=== PATIENT | female | born 1955 | race Caucasian/White ===

== ENCOUNTER → 2016-06-06 | Outpatient (CLI) | payer BC ==
--- NOTE | 2016-06-10 07:57 | MM ---
Reason for exam: screening (asymptomatic). Last mammogram was performed 1 year and 8 months ago. Physical Findings: A clinical breast exam by your physician is recommended on an annual basis and results should be correlated with mammographic findings. MG Screening Mammo w CAD Bilateral CC and MLO view(s) were taken. Prior study comparison: October 10, 2014, bilateral MG screening mammo w CAD. There are scattered fibroglandular densities. Finding: There are intermediate concern, suspicious, fine grouped/clustered calcifications in the upper quadrant, posterior position of the right breast, 13cm from the nipple. Left breast calcification appear stable. New finding and increase in number of calcifications. ASSESSMENT: Incomplete: need additional imaging evaluation, BI-RAD 0 RECOMMENDATION: Special view mammogram of the right breast. [facility] will attempt to contact patient to return for supplemental views.
== END | disposition home or self-care (01) ==
LOC: RADMAMWWP 11:50
PROVIDERS: ATTEND Internal Medicine
DX: Z12.31 Encounter for screening mammogram for malignant neoplasm of breast (principal)

== ENCOUNTER → 2016-06-11 | Outpatient (CLI) | payer BC ==
--- NOTE | 2016-06-11 10:49 | MM ---
Reason for exam: additional evaluation requested from abnormal screening. Last mammogram was performed less than 1 month ago. History: Patient is postmenopausal. Family history of breast cancer in maternal grandmother. Took progesterone for 10 years beginning at age 50. Physical Findings: Nurse did not find any significant physical abnormalities on exam. MG Work Up Mamm w CAD RT LM, XCCL, CC with magnification, and LM with magnification view(s) were taken of the right breast. Prior study comparison: June 06, 2016, bilateral MG screening mammo w CAD. October 10, 2014, bilateral MG screening mammo w CAD. There are scattered fibroglandular densities. Ovoid group of microcalcifications far posteriorly upper outer quadrant seen on the XCCL view. The lateral view has an identical appearance to the prior MLO view. The apparent increase in calcifications is suspected projectional. A 6 month follow up recommended. These results were verbally communicated with the patient and result sheet given to the patient on 06/11/16. ASSESSMENT: Probably benign, BI-RAD 3 RECOMMENDATION: Follow-up diagnostic mammogram of the right breast in 6 months. (+ XCCL) MTDD
== END | disposition home or self-care (01) ==
LOC: RADMAMWWP 09:30
PROVIDERS: ATTEND Internal Medicine
DX: R92.8 Other abnormal and inconclusive findings on diagnostic imaging of breast (principal)

== ENCOUNTER → 2017-01-12 | Outpatient (CLI) | payer BC ==
--- NOTE | 2017-01-12 10:37 | MM ---
Reason for exam: follow-up at short interval from prior study. Last mammogram was performed 7 months ago. History: Patient is postmenopausal. Family history of breast cancer in maternal grandmother. Took progesterone for 10 years beginning at age 50. Physical Findings: Nurse did not find any significant physical abnormalities on exam. MG Diagnostic Mammo RT w CAD CC and MLO view(s) were taken of the right breast. Prior study comparison: June 11, 2016, right breast MG work up mamm w CAD RT. June 06, 2016, bilateral MG screening mammo w CAD. Finding: There are stable typically benign round, grouped/clustered calcifications in the upper outer quadrant, posterior position of the right breast. These results were verbally communicated with the patient and result sheet given to the patient on 01/12/17. ASSESSMENT: Benign, BI-RAD 2 RECOMMENDATION: Follow-up diagnostic mammogram of both breasts in 5 months. Back on schedule for May 2017.
== END ==
LOC: RADMAMWWP 09:31
PROVIDERS: ATTEND Obstetrics & Gynecology
DX: R92.8 Other abnormal and inconclusive findings on diagnostic imaging of breast (principal)

== ENCOUNTER 2017-07-29 08:22 | Day surgery (SDC) | payer BC ==
[2017-07-27 13:02] VITALS: BMI 33.4
[~2017-07-29 08:22] MED LIST: LACTATED RINGERS 1,000 ML IV SCH; LIDOCAINE 1% 20 ML VIAL (10MG/ML) FOR IV START INTRADERMA PRN
[2017-07-29 08:56] LABS: Glucose,Whole Blood 153 mg/dL (75-99)
[2017-07-29 08:57] VITALS: RESP 18; TEMP 97.3
[2017-07-29] MEDS ORDERED: PROPOFOL 10 MG/ML 20 ML VIAL IV ONE (09:09)
--- NOTE | 2017-07-29 09:35 | P.PCN ---
Date of Procedure: 07/29/17 Procedure(s) Performed: Brief history: Patient is a pleasant 62-year-old white female, scheduled for an elective upper endoscopy as well as colonoscopy as a part of evaluation of iron deficiency anemia. She denies any GI symptoms except for intermittent rectal bleeding. Procedure performed: Esophagogastroduodenoscopy with biopsy Colonoscopy with biopsy and snare polypectomy Preoperative diagnosis: Iron deficiency anemia and intermittent rectal bleeding Anesthesia: MAC Procedure: After informed consent was obtained from the patient was brought into the endoscopy unit and IV sedation was administered by anesthesia under continuous monitoring. Initially upper endoscopy was done. The Olympus GF 160 video endoscope was inserted inserted into the mouth and esophagus intubated without any difficulty and was gradually advanced into the stomach and duodenum and carefully examined. The bulb and second part of the duodenum appeared normal. Biopsies were done from the duodenum to rule out celiac disease. The scope was then withdrawn into the stomach adequately insufflated with air and upon careful examination the antrum appeared normal. In the proximal body the stomach there was mild gastritis seen and biopsies were done from this area. The rest of the body, cardia and fundus appeared normal. The scope was then withdrawn into the esophagus. The GE junction was located at 40 cm to the incisors. It appeared regular with no erythema erosions or ulcerations. Rest of the esophagus appeared normal. Patient tolerated the procedure well. At this time the patient continued to remain sedation. Initial digital rectal examination was normal. Olympus CF 160 video colonoscope was then inserted into the rectum and gradually advanced to the cecum without any difficulty. Careful examination was performed as the scope was gradually being withdrawn. The prep was excellent. The cecum, ascending colon, transverse colon appeared normal. In the transverse colon there was a 3-4 mm sessile polyp removed by biopsy. In the descending colon there was a 1 cm broad-based polyp removed by snare polypectomy. The rest of the, descending colon, sigmoid colon and rectum appeared normal. Scattered left sided diverticulosis seen. Retroflexion was performed in the rectum and grade 2 internal hemorrhoids were noted. Patient tolerated the procedure well. Impression: 1.Upper endoscopy revealed mild antral gastritis but no evidence of esophagitis or peptic ulcer disease. 2.Colonoscopy revealed 3-4 mm sessile transverse colon polyp status post removal by cold biopsy and 1 cm descending colon polyp removed by snare polypectomy. Scattered left-sided diverticulosis Recommendations: Findings of this examination were discussed with the patient as well as her family. She was advised to follow with the biopsy results. If the biopsy shows a tubular adenoma, she can have a repeat colonoscopy in 3-5 years
[2017-07-29 10:11] VITALS: BP 106/57; PULSE 70
== END 2017-07-29 10:18 | disposition home or self-care (01) ==
LOC: ORWHC2ENDO 08:22
PROVIDERS: ATTEND Internal Medicine Gastroenterology
DX: K29.80 Duodenitis without bleeding (principal); K29.50 Unspecified chronic gastritis without bleeding; D12.4 Benign neoplasm of descending colon; D17.79 Benign lipomatous neoplasm of other sites; K63.5 Polyp of colon; K57.30 Diverticulosis of large intestine without perforation or abscess without bleeding; K64.1 Second degree hemorrhoids; D50.9 Iron deficiency anemia, unspecified; I10 Essential (primary) hypertension; E78.5 Hyperlipidemia, unspecified; J44.9 Chronic obstructive pulmonary disease, unspecified; E07.9 Disorder of thyroid, unspecified; Z79.84 Long term (current) use of oral hypoglycemic drugs; Z79.82 Long term (current) use of aspirin; Z79.890 Hormone replacement therapy; Z79.899 Other long term (current) drug therapy; Z88.5 Allergy status to narcotic agent
CPT/HCPCS: 88305; 45380; 45385; 43239; J2704

== ENCOUNTER → 2019-05-06 | Outpatient (CLI) | payer BC ==
--- NOTE | 2019-05-09 11:24 | MM ---
Reason for exam: screening (asymptomatic). Last mammogram was performed 2 years and 4 months ago. History: Patient is postmenopausal. Family history of breast cancer in maternal grandmother. Took progesterone for 10 years beginning at age 50. Physical Findings: A clinical breast exam by your physician is recommended on an annual basis and results should be correlated with mammographic findings. MG Screening Mammo w CAD Bilateral CC, MLO, and XCCL view(s) were taken. Prior study comparison: January 12, 2017, right breast MG diagnostic mammo RT w CAD. June 11, 2016, right breast MG work up mamm w CAD RT. The breast tissue is heterogeneously dense. This may lower the sensitivity of mammography. Finding: There are typically benign dystrophic, round calcifications in both breasts. Group of calcifications right posterior upper outer quadrant and in the left posterior slight upper outer quadrant. Increase in number of calcifications since January 12, 2017 and June 11, 2016. ASSESSMENT: Incomplete: need additional imaging evaluation, BI-RAD 0 RECOMMENDATION: Special view mammogram of both breasts. [facility] will attempt to contact patient to return for supplemental views.
== END | disposition home or self-care (01) ==
LOC: RADMAMWWP 14:35
PROVIDERS: ATTEND Internal Medicine
DX: Z12.31 Encounter for screening mammogram for malignant neoplasm of breast (principal)
CPT/HCPCS: 77067

== ENCOUNTER → 2019-05-18 | Outpatient (CLI) | payer BC ==
--- NOTE | 2019-05-19 10:24 | MM ---
Reason for exam: additional evaluation requested from abnormal screening. Last mammogram was performed less than 1 month ago. History: Patient is postmenopausal. Family history of breast cancer in maternal grandmother. Took progesterone for 10 years beginning at age 50. Physical Findings: Nurse did not find any significant physical abnormalities on exam. MG Work Up Mamm w CAD BILAT Bilateral CC with magnification, LM with magnification, and LM view(s) were taken. Prior study comparison: May 06, 2019, bilateral MG screening mammo w CAD. January 12, 2017, right breast MG diagnostic mammo RT w CAD. The breast tissue is heterogeneously dense. This may lower the sensitivity of mammography. There is a 5mm group of calcifications in the right upper outer quadrant at posterior depth unchanged in size compared to magnification views from 2017. The left 3mm group in the upper outer quadrant is also unchanged from 2017. These results were verbally communicated with the patient and result sheet given to the patient on 05/18/19. ASSESSMENT: Benign, BI-RAD 2 RECOMMENDATION: Return to routine screening mammogram schedule for both breasts.
== END | disposition home or self-care (01) ==
LOC: RADMAMWWP 14:00
PROVIDERS: ATTEND Internal Medicine
DX: R92.8 Other abnormal and inconclusive findings on diagnostic imaging of breast (principal)
CPT/HCPCS: 77066

== ENCOUNTER 2019-10-26 07:27 | Day surgery (SDC) | payer BC, MEDICARE ==
[2019-10-25 10:00] VITALS: BMI 37.4
[~2019-10-26 07:27] MED LIST changes: +LIDOCAINE 1% (10MG/ML) FOR IV START INTRADERMA PRN; -LIDOCAINE 1% 20 ML VIAL (10MG/ML) FOR IV START INTRADERMA PRN
[2019-10-26 08:05] VITALS: TEMP 97.4
[2019-10-26 08:07] LABS: Glucose,Whole Blood 182 mg/dL (75-99)
[2019-10-26] MEDS ORDERED: LIDOCAINE 1% INJ 10MG/ML (20 ML MDV) ONE (08:29)
[2019-10-26] MEDS ORDERED: PROPOFOL 10 MG/ML 20 ML VIAL IV ONE (08:29)
--- NOTE | 2019-10-26 08:40 | P.PCN ---
Date of Procedure: 10/26/19 Procedure(s) Performed: BRIEF HISTORY: Patient is a 64-year-old, pleasant, white female scheduled for an upper endoscopy as a part of evaluation of epigastric pain and anemia . Shee takes NSAIDs on a regular basis. She isn't scheduled for an upper endoscopy to rule out peptic ulcer disease. She had a colonoscopy approximately a year ago and the colon was normal contour the patient. PROCEDURE PERFORMED: Esophagogastroduodenoscopy with biopsy. PREOPERATIVE DIAGNOSIS: Epigastric pain and iron deficiency anemia. IV sedation per anesthesia. PROCEDURE: After informed consent was obtained, the patient was brought into the endoscopy unit. IV sedation was administered by Anesthesia under continuous monitoring. Initially the Olympus GIF-140 video endoscope was inserted into the mouth. Esophagus intubated without any difficulty. It was gradually advanced into the stomach and duodenum and carefully examined. The bulb and the second part of the duodenum appeared normal. Biopsies were done from the duodenum to rule out celiac disease. The scope at this time was withdrawn to the stomach, adequately insufflated with air, and upon careful examination, mucosa of the antrum had mild gastritis and biopsies were done from this area. There were no ulcerations identified. The, body, cardia and the fundus appeared normal. The scope was then withdrawn into the esophagus. The GE junction was located at 39 cm from the incisors. The esophagus appeared normal. There were no erosions or ulcerations seen and the patient tolerated the procedure well. IMPRESSION: 1.. Mild antral gastritis 2.. No evidence of esophagitis or peptic ulcer disease RECOMMENDATIONS: The findings of this examination were discussed with the patient as well as her family. She was advised to follow with the biopsy results. She can start iron supplements twice daily and monitor CBC closely. If she has persistent iron deficiency anemia will consider a small bowel capsule endoscopy in the near future..
[2019-10-26 08:59] VITALS: BP 100/60; PULSE 52; RESP 18
== END 2019-10-26 09:11 | disposition home or self-care (01) ==
LOC: ORWHC2ENDO 07:27
PROVIDERS: ATTEND Internal Medicine Gastroenterology
DX: K29.50 Unspecified chronic gastritis without bleeding (principal); D50.9 Iron deficiency anemia, unspecified; I25.10 Atherosclerotic heart disease of native coronary artery without angina pectoris; I10 Essential (primary) hypertension; G47.33 Obstructive sleep apnea (adult) (pediatric); J44.9 Chronic obstructive pulmonary disease, unspecified; E11.9 Type 2 diabetes mellitus without complications; E07.9 Disorder of thyroid, unspecified; K21.9 Gastro-esophageal reflux disease without esophagitis; Z79.899 Other long term (current) drug therapy; Z79.82 Long term (current) use of aspirin; Z79.1 Long term (current) use of non-steroidal anti-inflammatories (NSAID); Z79.890 Hormone replacement therapy; Z91.040 Latex allergy status; Z88.5 Allergy status to narcotic agent; Z90.89 Acquired absence of other organs; Z98.51 Tubal ligation status
CPT/HCPCS: 88305; 43239; J2001; J2704

== ENCOUNTER → 2020-06-13 | Outpatient (CLI) | payer MEDICARE ==
--- NOTE | 2020-06-15 11:50 | MM ---
Reason for exam: screening (asymptomatic). Last mammogram was performed 1 year and 1 month ago. History: Patient is postmenopausal. Family history of breast cancer in maternal grandmother. Took progesterone for 10 years beginning at age 50. Physical Findings: A clinical breast exam by your physician is recommended on an annual basis and results should be correlated with mammographic findings. MG 3D Screening Mammo W/Cad Bilateral CC and MLO view(s) were taken. Prior study comparison: May 18, 2019, bilateral MG work up mamm w CAD BILAT. May 06, 2019, bilateral MG screening mammo w CAD. The breast tissue is heterogeneously dense. This may lower the sensitivity of mammography. Nodular asymmetric density persists on 3D right CC but has no clear MLO correlate. Progressively increasing regional and grouped heterogeneous calcifications left breast 2-3 o'clock. ASSESSMENT: Incomplete: need additional imaging evaluation, BI-RAD 0 RECOMMENDATION: Special view mammogram of both breasts. (3D) If lesion persists on supplemental views, image directed ultrasound is recommended. [facility] will attempt to contact patient to return for supplemental views and ultrasound if indicated.
== END ==
LOC: RADMAMWWP 09:51
PROVIDERS: ATTEND Internal Medicine
DX: Z12.31 Encounter for screening mammogram for malignant neoplasm of breast (principal); Z78.0 Asymptomatic menopausal state; Z80.3 Family history of malignant neoplasm of breast
CPT/HCPCS: 77063; 77067

== ENCOUNTER → 2020-06-20 | Outpatient (CLI) | payer MEDICARE ==
--- NOTE | 2020-06-20 13:43 | MM ---
Reason for exam: additional evaluation requested from abnormal screening. Last mammogram was performed less than 1 month ago. History: Patient is postmenopausal. Family history of breast cancer in maternal grandmother. Took progesterone for 10 years beginning at age 50. Physical Findings: Nurse did not find any significant physical abnormalities on exam. MG 3D Work Up W/Cad JANETTE Bilateral ML view(s) were taken. Spot compression CC and CCRM view(s) were taken of the right breast. CC with magnification and ML with magnification view(s) were taken of the left breast. Prior study comparison: June 13, 2020, bilateral MG 3d screening mammo w/cad. May 18, 2019, bilateral MG work up mamm w CAD BILAT. May 06, 2019, bilateral MG screening mammo w CAD. January 12, 2017, right breast MG diagnostic mammo RT w CAD. There are scattered fibroglandular densities. The medial asymmetric density is not seen on additional views in the CC projection, possible cyst, 6 month follow up recommended. Increasing multiple groups of calcifications left upper outer quadrant. Two of these groups can be sampled. Annotated on magnification CC and 3D LM. These results were verbally communicated with the patient and result sheet given to the patient on 06/20/20. ASSESSMENT: Suspicious, BI-RAD 4 RECOMMENDATION: Stereotactic core biopsy of the left breast. (2 sites) Called Dr. Krishnamurthy's office with mammographic findings and has scheduled an appointment for the patient for 07/26/20 at 10:[address] Babcock. Biopsy scheduled for 07/27/20 at 8:00. PRELIMINARY REPORT CALLED AND FAXED TO DR. BABCOCK ON 06/20/20.
== END ==
LOC: RADMAMWWP 08:08
PROVIDERS: ATTEND Internal Medicine
DX: R92.8 Other abnormal and inconclusive findings on diagnostic imaging of breast (principal); N64.89 Other specified disorders of breast; Z78.0 Asymptomatic menopausal state; Z80.3 Family history of malignant neoplasm of breast
CPT/HCPCS: 77066; G0279; 77062

== ENCOUNTER → 2020-07-26 | Outpatient (CLI) | payer MEDICARE ==
[2020-07-26 10:17] VITALS: BP 129/81; PULSE 48; RESP 18; TEMP 98
--- NOTE | 2020-07-26 10:46 | P.GSHP ---
History of Present Illness H&P Date: 07/26/20 Chief Complaint: Radiographic abnormality bilateral breast Pallavi is a 65-year-old white female seen in consultation for Dr. Desir who underwent a routine bilateral mammogram on 3321. A nodular lesion was noted in the right breast and some heterogeneous calcifications were noted in the left breast for which additional [place]. [place] [address]. In the right breast the lesion appeared to compress out and was not worrisome. Six-month follow-up of the right breast was recommended. In the left breast increasing multiple groups of calcifications were noted and stereotactic core biopsy of 2 sites was recommended. She does not feel any lumps, masses or nodules in either breast. She is not complaining of any nipple discharge or skin changes. He does not complain of any new pain in her breast. She is not complaining of any trauma or infection in either breast. She's never had any surgery in her breast. Nicotine: Stopped 11 years ago Caffeine: 6 cans of pop per day Hormones: Negative Chocolate: Negative Family history: sister: lung cancer, smoker father: skin cancer Hormonal History: menarche: 13 , breast fed: no, age at first :18 menopause: 51 BCP: about 3 years hormones: none Surgical history: 1. Total knee replacement on the right, cartilage removed on the left 2. Gallbladder 3. Extra toe removed from the right foot 4. tubaligation Medical History: 1. TX 3 times, last one 10 years ago Social History: smoke: stopped 11 years ago, smoked 2 PPD for 40 years alcohol: none drugs: none - Constitutional Constitutional: Denies chills, Denies fever - EENT Eyes: denies blurred vision, denies pain Ears: bilateral: decreased hearing, deny: tinnitus Ears, nose, mouth and throat: Denies headache, Denies sore throat - Breasts Breasts: bilateral: as per HPI - Cardiovascular Comment: 3 heart attacks Cardiovascular: Reports shortness of breath - Respiratory Comment: former smoker, sleep apnea - Gastrointestinal Gastrointestinal: Denies abdominal pain, Denies diarrhea, Denies nausea, Denies vomiting - Genitourinary (Female) Genitourinary: Reports kidney stones - Menstruation Menstruation: Reports postmenopausal - Musculoskeletal Comment: arthritis - Integumentary Integumentary: Denies pruritus, Denies rash - Neurological Neurological: Denies numbness, Denies weakness - Psychiatric Psychiatric: Denies anxiety, Denies depression - Endocrine Comment: type 2 diabetic, hypothyroid Endocrine: Denies fatigue, Denies weight change - Hematologic/Lymphatic Comment: aspirin - Allergic/Immunologic Allergic/Immunologic: Reports as per HPI, Reports seasonal allergies Past Medical History Past Medical History: COPD, Diabetes Mellitus, GERD/Reflux, Hyperlipidemia, Hypertension, Myocardial Infarction (TX), Osteoarthritis (OA), Sleep Apnea/CPAP/BIPAP, Thyroid Disorder Additional Past Medical History / Comment(s): TX X 2 (2004 & 2008); ANEMIA; USES C-PAP MACHINE; SEASONAL ALLERGIES; HX KIDNEY STONE; HEMORRHOIDS; torn cartilage in left knee with surgery; total right knee replacement; Last Myocardial Infarction Date:: 2008 History of Any Multi-Drug Resistant Organisms: None Reported Past Surgical History: Cholecystectomy, Joint Replacement, Orthopedic Surgery, Tonsillectomy, Tubal Ligation Additional Past Surgical History / Comment(s): PT BORN WITH 6 TOES ON LT FOOT- ONE REMOVED CHILD, LT KNEE SURGERY, RT KNEE replacement, lt knee orthoscopic, COLONOSCOPY 2018, RT total knee arthroplasty; Past Anesthesia/Blood Transfusion Reactions: No Reported Reaction Past Psychological History: Anxiety, Depression Smoking Status: Former smoker Past Alcohol Use History: None Reported Additional Past Alcohol Use History / Comment(s): STARTED SMOKING AT AGE 15- QUIT IN 2004 SMOKED 1-2 PPD Past Drug Use History: None Reported - Past Family History Sister(s) Family Medical History: Cancer Additional Family Medical History / Comment(s): LUNG CANCER; in 2011 Daughter(s) Family Medical History: Cancer Additional Family Medical History / Comment(s): UTERINE CANCER Mother Additional Family Medical History / Comment(s): EMPHYSEMA Father Family Medical History: Cancer, Coronary Artery Disease (CAD), Diabetes Mellitus, Hypertension Additional Family Medical History / Comment(s): CABG, SKIN CANCER; 2019 Medications and Allergies Home Medications Medication Instructions Recorded Confirmed Type Levothyroxine Sodium [Synthroid] 100 mcg PO DAILY 01/02/15 07/18/20 History Metoprolol Tartrate [Lopressor] 25 mg PO BID 01/02/15 07/18/20 History Simvastatin [Zocor] 20 mg PO HS 01/02/15 07/18/20 History lisinopriL [Prinivil] 20 mg PO BID 01/02/15 07/18/20 History metFORMIN HCL [Glucophage] 500 mg PO BID 01/02/15 07/18/20 History Albuterol Inhaler (Mhu) [Ventolin 1 - 2 puff INHALATION Q6HR PRN 07/27/17 07/18/20 History Hfa Inhaler] Aspirin EC [Ecotrin Low Dose] 81 mg PO DAILY 07/27/17 07/18/20 History Calcium Carb/Vitamin D3/Vit K1 1 each PO DAILY 10/25/19 07/18/20 History [Citracal Soft Chew] Cholecalciferol (Vitamin D3) 125 mcg PO DAILY 10/25/19 07/18/20 History [Vitamin D3] Citalopram Hydrobromide 40 mg PO DAILY 10/25/19 07/18/20 History [Citalopram HBr] Cyanocobalamin (Vitamin B-12) 5,000 mcg PO DAILY 10/25/19 07/18/20 History [Vitamin B-12] Ibuprofen 400 mg PO DIRECTED PRN 10/25/19 07/18/20 History Omeprazole Magnesium [PriLOSEC OTC] 20 mg PO DAILY 10/25/19 07/18/20 History Potassium Chloride ER [K-Dur 20] 20 meq PO DAILY 10/25/19 07/18/20 History glipiZIDE [Glucotrol] 5 mg PO AC-BRKFST 10/25/19 07/18/20 History Ferrous Sulfate [Iron (65 MG 65 mg PO DAILY 07/18/20 07/18/20 History Elemental)] Allergies Allergy/AdvReac Type Severity Reaction Status Date / Time latex Allergy Unknown Itching Verified 07/26/20 10:02 Penicillins Allergy Rash/Hives Verified 07/26/20 10:02 codeine AdvReac Nausea & Verified 07/26/20 10:02 Dizziness Surgical - Exam Vital Signs Temp Pulse Resp BP Pulse Ox 98.0 F 48 L 18 129/81 100 07/26/20 10:04 07/26/20 10:04 07/26/20 10:04 07/26/20 10:04 07/26/20 10:04 BMI 42.7 - General no distress - Eyes normal ocular movement - Neck no masses, trachea midline - Respiratory normal expansion, normal respiratory effort, clear to auscultation - Cardiovascular Rhythm: regular Heart Sounds: normal: S1, S2 - Abdomen Abdomen: soft, non tender, no guarding, no rigid, no rebound - Integumentary normal turgor - Neurologic no disoriented, no combative - Musculoskeletal normal gait - Psychiatric oriented to time, oriented to person, oriented to place, speech is normal, memory intact Breast exam: BRA: 42C inspection: Bilateral grade 3 ptosis Palpation: Right breast: Multi-positional exam fibrocystic changes, no dominant masses or nodules of concern Right axilla: No adenopathy of concern Left breast: Multiple positional exam fibrocystic changes no dominant masses or nodules of concern Left axilla: No adenopathy of concern Results Mammogram results reviewed Assessment and Plan Assessment: Impression: 1. Abnormal radiographic findings right and left breast 2. Fibrocystic breast changes 3. Prior history of TX 3 4. hypothyroid 5. Aspirin daily 6. Type 2 diabetes Plan: 1. Repeat right breast mammogram in 6 months 2. Left breast are detected core biopsy of 2 areas of concern Risks and benefits of the procedure were discussed with the patient she understands and wishes to proceed. Risks include but are not limited to bleeding, infection, reaction to the anesthetic. We are unable to identify the lesion on the stereotactic core biopsy table then it may be recommended that an open biopsy be performed. CC: Dr. Desir
== END ==
LOC: WWCWWP 09:46
PROVIDERS: ATTEND Surgery
DX: R92.1 Mammographic calcification found on diagnostic imaging of breast (principal); N60.12 Diffuse cystic mastopathy of left breast; N60.11 Diffuse cystic mastopathy of right breast; E03.9 Hypothyroidism, unspecified; I25.2 Old myocardial infarction; J44.9 Chronic obstructive pulmonary disease, unspecified; E11.9 Type 2 diabetes mellitus without complications; I10 Essential (primary) hypertension; E78.5 Hyperlipidemia, unspecified; Z87.891 Personal history of nicotine dependence; Z79.82 Long term (current) use of aspirin; M19.90 Unspecified osteoarthritis, unspecified site; F32.9 Major depressive disorder, single episode, unspecified; F41.9 Anxiety disorder, unspecified; K21.9 Gastro-esophageal reflux disease without esophagitis; Z79.84 Long term (current) use of oral hypoglycemic drugs

== ENCOUNTER → 2020-07-27 | Day surgery (SDC) | payer MEDICARE ==
[2020-07-27 07:35] VITALS: RESP 16
[2020-07-27 09:53] VITALS: BP 105/70; PULSE 66; TEMP 97.9
--- NOTE | 2020-07-27 10:07 | P.PCN ---
Date of Procedure: 07/27/20 Preoperative Diagnosis: Microcalcifications of concern 2 areas in the left breast Postoperative Diagnosis: Same Procedure(s) Performed: Stereotactic core biopsy 2 areas of concern left breast Anesthesia: local Surgeon: Fidelina Babcock Estimated Blood Loss (ml): 0 Pathology: other (Breast tissue anterior and posterior regions left breast, areas of concern felt to be adequately sampled) Condition: stable Disposition: same day Indications for Procedure: Increasing multiple groups of calcifications left breast upper outer quadrant 2 areas Operative Findings: Microcalcifications Description of Procedure: Pallavi is a 65-year-old female who was noted to have increasing multiple groups of calcifications in the left breast upper outer quadrant area. To these grooves are recommended for sampling. The patient was explained risks and benefits of the procedure and chose to proceed. The patient was taken to the stereotactic core biopsy room. A ctrs film was obtained using a lateral to medial approach. The area of concern posteriorly was identified initially. The area was targeted. The breast was prepped using Betadine. 16 mL of 1% lidocaine were used to anesthetize the area of concern. A 9-gauge vacuum-assisted core rotating biopsy needle was driven to the correct coordinates. The needle was fired. A post fire film revealed the needle to be in the correct location. 12 specimens were obtained. Radiograph of the specimens revealed microcalcifications of concern had been adequately sampled. A secure ember Top-Hat clip was placed. The anterior area of calcifications was then addressed. Again a ctrs film was obtained which revealed the calcifications of concern. The breast was prepped using Betadine. 16 mL of 1% lidocaine was used to anesthetize the area of concern. A 9-gauge vacuum-assisted: Rotating biopsy needle was driven to the correct coordinates. The needle was fired. Post fire film revealed the needle to be in the correct location. 12 specimens were obtained. Radiograph the spec imens revealed microcalcifications of concern had been adequately sampled. A tri-ember bowtie clip was placed. The breast tissue was sent to pathology. The patient will follow-up with Dr. Simpson in 1 week.
--- NOTE | 2020-07-27 16:51 | MM ---
EXAMINATION TYPE: MG stereo VAD BX LT, MG stereo VAD BX addl LT DATE OF EXAM: 07/27/2020 COMPARISON: 06/13/2020 and 06/20/2020 CLINICAL HISTORY: 65-year-old female R92.8, abnormal mammogram, referred for stereotactic core needle biopsy of left breast microcalcifications. TECHNIQUE: Stereotactic guided core biopsy of the left breast, 2 sites FINDINGS: The procedure of stereotactic guided core biopsy was explained to the patient. Benefits, alternatives, and risks were discussed. An informed consent was then obtained. The shortness pathway for biopsy was chosen. Shortness pathway was a lateral approach. I performed the localization, then surgeon, Dr. Calvin Kendall performed the remainder of the procedure. A vacuum assisted biopsy gun was used to obtain multiple core samples. SITE 1, Posterior calcifications. 12 samples were taken. An S-ember clip was deposited. On post biopsy mammogram we note prominent 4 cm of lateral migration but residual calcifications present to ember the site of biopsy. SITE 2, anterior calcifications. 12 samples were taken. An Trimark clip was deposited. On post biopsy mammogram we note 2.0 to 2.5 cm a medial migration. No residual calcifications to ember the site of biopsy. The patient tolerated the procedure well without any immediate complication. The patient was kept in the radiology department for short stay after the procedure and then discharged home in stable condition. Targeted calcifications are identified in specimen mammogram. IMPRESSION: SUCCESSFUL, UNCOMPLICATED STEREOTACTIC GUIDED CORE BIOPSY OF 2 SITES OF MICROCALCIFICATIONS IN THE LATERAL LEFT BREAST. FULL PATHOLOGY RESULTS TO FOLLOW. NOTE THAT A LATERAL APPROACH WAS UTILIZED AND THERE WAS PROMINENT CLIP MIGRATION AT BOTH SITES DETAILED ABOVE. The CC image marked on PACS. Pathology Results: Benign A. 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 B. LEFT BREAST ANTERIOR, STEREOTACTIC CORE BIOPSY: Fibroadenoma/fibroadenomatoid hyperplasia with calcifications in a background of fibrocystic changes. Recommendation Follow up mammogram of the left breast in 6 months. ERWIN
== END ==
LOC: RADMAMWWP 07:02
PROVIDERS: ATTEND Surgery
DX: D24.2 Benign neoplasm of left breast (principal); N60.12 Diffuse cystic mastopathy of left breast
CPT/HCPCS: 88305; 19081; 19082; A4648; J2001

== ENCOUNTER → 2020-08-03 | Outpatient (CLI) | payer MEDICARE ==
[2020-08-03 09:45] VITALS: BP 134/62; PULSE 66; RESP 20; TEMP 98.1
--- NOTE | 2020-08-03 10:04 | P.PN ---
Subjective Progress Note Date: 08/03/20 Principal diagnosis: Fibroadenomatoid hyperplasia 2 areas left breast status post stereo biopsy Pallavi is a 65-year-old [place] [id number] jacinto Huynh who underwent a routine bilateral mammogram on 3321. A nodular lesion was noted in the right breast and some heterogeneous calcifications were noted in the left breast for which additional radiographs [place]. [place] [address]. In the right breast lesion appeared to compress out and was not worrisome. Six-month follow-up of the right breast was recommended. In the left breast increasing multiple groups of calcifications were noted and stereotactic core biopsy of 2 sites [place] [address]. Pathology from post an anterior and posterior site were obtained. The left posterior site revealed fibroadenomatoid hyperplasia with calcifications. The anterior site revealed fibroadenoma/fibroadenomatoid hyperplasia with calcifications in both in a background of fibrocystic changes. The patient tolerated the procedure without difficulties. Caffeine: 6 cans of pop per day/patient understands that this may exacerbate fibrocystic changes Nicotine: Stopped 11 years ago Chocolate: Negative Hormones: Negative Objective - Vital Signs Vital signs: Vital Signs Temp 98.1 F 08/03/20 09:43 Pulse 66 08/03/20 09:43 Resp 20 08/03/20 09:43 BP 134/62 08/03/20 09:43 Pulse Ox 97 08/03/20 09:43 Intake & Output 08/02/20 08/03/20 08/03/20 18:59 06:59 18:59 Weight 127.006 kg - Exam BMI: 42 - Constitutional General appearance: Present: obese - EENT Eyes: Present: EOMI ENT: Present: hearing grossly normal - Neck Neck: Present: normal ROM - Respiratory Respiratory: bilateral: CTA - Cardiovascular Rhythm: regular Heart sounds: normal: S1, S2 - Integumentary Integumentary Comment(s): biopsy sites clean and dry; mild ecchymosis no evidence of infection or hematoma Integumentary: Present: normal turgor Assessment and Plan Assessment: Impression: 1. Status post stereotactic core biopsy of 2 sites in the left breast/both benign 2. Right breast mammogram recommended in 6 months secondary to nodular change Plan: 1. Right breast mammogram to follow nodular density in 6 months 2. Left breast mammogram status post area biopsy in 6 months 3. Follow-up ear after bilateral mammogram CC: Dr. Desir
== END ==
LOC: WWCWWP 09:30
PROVIDERS: ATTEND Surgery
DX: D24.2 Benign neoplasm of left breast (principal); Z87.891 Personal history of nicotine dependence

== ENCOUNTER → 2021-01-28 | Outpatient (CLI) | payer MEDICARE ==
--- NOTE | 2021-01-28 11:38 | MM ---
Reason for exam: follow-up at short interval from prior study. Last mammogram was performed 7 months ago. History: Patient is postmenopausal. Family history of breast cancer in maternal grandmother. Benign MG stereo VAD BX addl LT of the left breast, July 27, 2020. Benign MG stereo VAD BX LT of the left breast, July 27, 2020. Took progesterone for 10 years beginning at age 50. Physical Findings: Nurse did not find any significant physical abnormalities on exam. MG 3D Diag Mammo W/Cad JANETTE Bilateral CC and MLO view(s) were taken. Prior study comparison: June 20, 2020, bilateral MG 3d work up w/cad JANETTE. June 13, 2020, bilateral MG 3d screening mammo w/cad. May 18, 2019, bilateral MG work up mamm w CAD BILAT. There are scattered fibroglandular densities. Two biopsy clips left breast. These results were verbally communicated with the patient and result sheet given to the patient on 01/28/21. ASSESSMENT: Benign, BI-RAD 2 RECOMMENDATION: Routine screening mammogram of both breasts in 1 year.
== END | disposition home or self-care (01) ==
LOC: RADMAMWWP 10:36
PROVIDERS: ATTEND Surgery
DX: R92.2 Inconclusive mammogram (principal); Z80.3 Family history of malignant neoplasm of breast
CPT/HCPCS: 77066; G0279; 77062

== ENCOUNTER → 2021-02-01 | Outpatient (CLI) | payer MEDICARE ==
[2021-02-01 11:36] VITALS: BP 137/82; PULSE 86; RESP 18; TEMP 98.4
--- NOTE | 2021-02-01 11:37 | P.PN ---
Subjective Progress Note Date: 02/01/21 Principal diagnosis: Fibrocystic breast changes Pallavi is a 65-year-old white female seen in consultation for Dr. Desir who underwent a routine bilateral mammogram on 3321. A nodular lesion was noted in the right breast and some heterogeneous calcifications were noted in the left breast for which additional radiographs [place]. [place] [address]. In the right breast the lesion appeared to compress out and was not worrisome. Six-month follow-up of the right breast was recommended. In the left breast increasing multiple groups of calcifications were noted and stereotactic core biopsy of 2 sites was recommended. She did not feel any lumps, masses or nodules in either breast. She was not complaining of any nipple discharge or skin changes. She did not complain of any new pain in her breast. She did not complain of any trauma or infection in either breast. She had never had any surgery in her breast. She underwent stereotactic core biopsy of the left breast and [address]223. Pathology was benign of both sites. At this time she has no concerns about any lumps masses or nodules in either breast. She had bilateral mammogram performed on 961512 which was benign BIRADS 2. Nicotine: Stopped 11 years ago Caffeine: 6 cans of pop per day Hormones: Negative Chocolate: Negative Family history: sister: lung cancer, smoker father: skin cancer Hormonal History: menarche: 13 , breast fed: no, age at first :18 menopause: 51 BCP: about 3 years hormones: none Surgical history: 1. Total knee replacement on the right, cartilage removed on the left 2. Gallbladder 3. Extra toe removed from the right foot 4. tubaligation 5. stero biopsy two sites in the left breast Medical History: 1. [place] 3 times, last one 10 years ago Social History: smoke: stopped 11 years ago, smoked 2 PPD for 40 years alcohol: none drugs: none - Constitutional Constitutional: Denies chills, Denies fever - EENT Eyes: denies blurred vision, denies pain Ears: bilateral: decreased hearing, deny: tinnitus Ears, nose, mouth and throat: Denies headache, Denies sore throat - Breasts Breasts: bilateral: as per HPI - Cardiovascular Comment: 3 heart attacks Cardiovascular: Reports shortness of breath - Respiratory Comment: former smoker, sleep apnea - Gastrointestinal Gastrointestinal: Denies abdominal pain, Denies diarrhea, Denies nausea, Denies vomiting - Genitourinary (Female) Genitourinary: Reports kidney stones - Menstruation Menstruation: Reports postmenopausal - Musculoskeletal Comment: arthritis - Integumentary Integumentary: Denies pruritus, Denies rash - Neurological Neurological: Denies numbness, Denies weakness - Psychiatric Psychiatric: Denies anxiety, Denies depression - Endocrine Comment: type 2 diabetic, hypothyroid Endocrine: Denies fatigue, Denies weight change - Hematologic/Lymphatic Comment: aspirin - Allergic/Immunologic Allergic/Immunologic: Reports as per HPI, Reports seasonal allergies Objective - Constitutional General appearance: Present: cooperative - EENT Eyes: Present: EOMI ENT: Present: hearing grossly normal - Neck Neck: Present: normal ROM - Respiratory Respiratory: bilateral: CTA - Cardiovascular Rhythm: regular Heart sounds: normal: S1, S2 - Gastrointestinal General gastrointestinal: Present: soft - Integumentary Integumentary: Present: normal turgor - Musculoskeletal Musculoskeletal: Present: gait normal - Psychiatric Psychiatric: Present: A&O x's 3, appropriate affect, intact judgment & insight - Additional findings Additional findings: Breast examination: Bra: 42C Inspection: Bilateral grade 3 ptosis Palpation: Right breast: Multiple positional exam fibrocystic changes no dominant masses or nodules of concern Right axilla: No adenopathy of concern Left breast: Multiple positional exam fibrocystic changes no dominant masses or nodules of concern Left axilla: No adenopathy of concern Assessment and Plan Assessment: Impression: 1. Bilateral fibrocystic breast changes no dominant masses or nodules of concern Plan: Bilateral mammogram in 1 year with physician exam at that time CC: Dr. Desir
== END ==
LOC: WWCWWP 11:26
PROVIDERS: ATTEND Surgery
DX: N60.11 Diffuse cystic mastopathy of right breast (principal); N60.12 Diffuse cystic mastopathy of left breast; Z87.891 Personal history of nicotine dependence; I25.2 Old myocardial infarction; Z88.0 Allergy status to penicillin; Z88.5 Allergy status to narcotic agent; Z91.040 Latex allergy status

== ENCOUNTER → 2022-02-06 | Outpatient (CLI) | payer MEDICARE ==
--- NOTE | 2022-02-07 10:11 | MM ---
Reason for Exam: Screening (asymptomatic). Last screening mammogram was performed 12 month(s) ago. Patient History: Menarche at age 11. First Full-Term at age 19. Postmenopausal. Progesterone for 10 years from age 50 until age 60. 07/27/2020, Benign Core Biopsy on the left side. 07/27/2020, Benign Core Biopsy on the left side. Maternal grandmother had breast cancer. Risk Values: Nadege 5 year model risk: 2.3%. NCI Lifetime model risk: 7.7%. Prior Study Comparison: 06/13/2020 Bilateral Screening Mammogram, [facility]. 06/20/2020 Bilateral Diagnostic Mammogram, [facility]. 01/28/2021 Bilateral Diagnostic Mammogram, [facility]. Tissue Density: There are scattered fibroglandular densities. Findings: Analyzed By CAD. Scattered benign appearing consultations. There is no suspicious group of microcalcifications or new suspicious mass in either breast. Overall Assessment: Benign, BI-RAD 2 Management: Screening Mammogram of both breasts in 1 year. A clinical breast exam by your physician is recommended on an annual basis and results should be correlated with mammographic findings. [facility] will attempt to contact patient to return for supplemental views and ultrasound if indicated. Electronically signed and approved by: Ari Paul DO
== END | disposition home or self-care (01) ==
LOC: RADMAMWWP 14:19
PROVIDERS: ATTEND Surgery
DX: Z12.31 Encounter for screening mammogram for malignant neoplasm of breast (principal); Z78.0 Asymptomatic menopausal state; Z80.3 Family history of malignant neoplasm of breast
CPT/HCPCS: 77063; 77067

== ENCOUNTER → 2022-02-13 | Outpatient (CLI) | payer MEDICARE ==
[2022-02-13 09:58] VITALS: BP 100/63; PULSE 75; RESP 17; TEMP 97.9
--- NOTE | 2022-02-13 09:58 | P.PN ---
Subjective Progress Note Date: 02/13/22 Principal diagnosis: fibrocystic breast changes Fibrocystic breast changes Pallavi is a 65-year-old white female seen in consultation for Dr. Desir who underwent a routine bilateral mammogram on 3321. A nodular lesion was noted in the right breast and some heterogeneous calcifications were noted in the left breast for which additional radiographs [place]. [place] [address]. In the right breast the lesion appeared to compress out and was not worrisome. Six-month follow-up of the right breast was recommended. In the left breast increasing multiple groups of calcifications were noted and stereotactic core biopsy of 2 sites was recommended. She did not feel any lumps, masses or nodules in either breast. She was not complaining of any nipple discharge or skin changes. She did not complain of any new pain in her breast. She did not complain of any trauma or infection in either breast. She had never had any surgery in her breast. She underwent stereotactic core biopsy of the left breast and 51883. Pathology was benign of both sites. At this time she has no concerns about any lumps masses or nodules in either breast. She had bilateral mammogram performed on 739639 which was benign BIRADS 2. 11-3-22 The patient at this time is not complaining of any lumps masses or nodules of concern in either breast. She had a bilateral mammogram performed on 1020 722 which was benign BIRADS 2. Nadege five-year model risk is 2.3%, discussed hormone therapy for risk reduction at this time she has declined. Nicotine: Stopped 11 years ago Caffeine: 6 cans of pop per day Hormones: Negative Chocolate: Negative Family history: sister: lung cancer, smoker father: skin cancer Hormonal History: menarche: 13 , breast fed: no, age at first :18 menopause: 51 BCP: about 3 years hormones: none Surgical history: 1. Total knee replacement on the right, cartilage removed on the left 2. Gallbladder 3. Extra toe removed from the right foot 4. tubaligation 5. stero biopsy two sites in the left breast Medical History: 1. [place] 3 times, last one 10 years ago Social History: smoke: stopped 11 years ago, smoked 2 PPD for 40 years alcohol: none drugs: none - Constitutional Constitutional: Denies chills, Denies fever - EENT Eyes: denies blurred vision, denies pain Ears: bilateral: decreased hearing, deny: tinnitus Ears, nose, mouth and throat: Denies headache, Denies sore throat - Breasts Breasts: bilateral: as per HPI - Cardiovascular Comment: 3 heart attacks Cardiovascular: Reports shortness of breath - Respiratory Comment: former smoker, sleep apnea - Gastrointestinal Gastrointestinal: Denies abdominal pain, Denies diarrhea, Denies nausea, Denies vomiting - Genitourinary (Female) Genitourinary: Reports kidney stones - Menstruation Menstruation: Reports postmenopausal - Musculoskeletal Comment: arthritis - Integumentary Integumentary: Denies pruritus, Denies rash - Neurological Neurological: Denies numbness, Denies weakness - Psychiatric Psychiatric: Denies anxiety, Denies depression - Endocrine Comment: type 2 diabetic, hypothyroid Endocrine: Denies fatigue, Denies weight change - Hematologic/Lymphatic Comment: aspirin - Allergic/Immunologic Allergic/Immunologic: Reports as per HPI, Reports seasonal allergies Objective - Constitutional General appearance: Present: cooperative - EENT Eyes: Present: EOMI ENT: Present: hearing grossly normal - Neck Neck: Present: normal ROM - Respiratory Respiratory: bilateral: CTA - Cardiovascular Rhythm: regular Heart sounds: normal: S1, S2 - Gastrointestinal General gastrointestinal: Present: soft - Integumentary Integumentary: Present: normal turgor - Musculoskeletal Musculoskeletal: Present: gait normal - Psychiatric Psychiatric: Present: A&O x's 3, appropriate affect, intact judgment & insight - Additional findings Additional findings: Breast Exam: BRA; 42C Section: Bilateral grade 3 ptosis Palpation: Right breast: Multiple positional exam fibrocystic changes no dominant masses or nodules of concern Right axilla: No adenopathy of concern Left breast: Multiple positional exam fibrocystic changes, no dominant masses or nodules of concern Left axilla: No adenopathy of concern Right breast is slightly smaller than left breast Assessment and Plan Assessment: Impression: Fibrocystic breast changes Bilateral mammogram [id number] benign BIRADS 2 Nadege risk 2.3% 5 year patient declined hormone therapy Plan: Bilateral mammogram in 1 year Patient follow-up after bilateral mammogram Patient to follow up sooner any questions or concerns CC: Dr. Desir
== END | disposition home or self-care (01) ==
LOC: WWCWWP 09:15
PROVIDERS: ATTEND Surgery
DX: Z53.9 Procedure and treatment not carried out, unspecified reason (principal)

== ENCOUNTER 2022-04-05 19:10 | Emergency (ER) | payer MEDICARE ==
[2022-04-05 19:24] VITALS: RESP 18; TEMP 98
--- NOTE | 2022-04-05 20:21 | ED ---
General Adult HPI - General Chief complaint: Overdose Stated complaint: Overdose Time Seen by Provider: 04/05/22 19:13 Source: patient Mode of arrival: EMS Limitations: no limitations - History of Present Illness Initial comments: This is a 66-year-old female with a past medical history including diabetes presents emergency department via EMS after she ingested a marijuana edible at home. The patient stated that she used a half on edible gummy and stated that she felt "weird" and her family was concerned because she was falling asleep at the house. EMS was called and the patient was taken to the emergency department for evaluation. On evaluation, the patient stated that she denied of any pain and denied any lightheadedness or dizziness. The patient denied any other acute pain or complaints at this time. The patient stated that she has never ingested and edible gummy with THC but has used CBD in the past. The patient denied any other acute pain. - Related Data Home Medications Medication Instructions Recorded Confirmed Levothyroxine Sodium [Synthroid] 100 mcg PO DAILY 01/02/15 02/13/22 Metoprolol Tartrate [Lopressor] 25 mg PO BID 01/02/15 02/13/22 Simvastatin [Zocor] 20 mg PO HS 01/02/15 02/13/22 lisinopriL [Prinivil] 20 mg PO BID 01/02/15 02/13/22 metFORMIN HCL [Glucophage] 500 mg PO BID 01/02/15 02/13/22 Albuterol Inhaler [Ventolin Hfa 1 - 2 puff INHALATION Q6HR PRN 07/27/17 02/13/22 Inhaler] Aspirin EC [Ecotrin Low Dose] 81 mg PO DAILY 07/27/17 02/13/22 Calcium Carb/Vitamin D3/Vit K1 1 each PO DAILY 10/25/19 02/13/22 [Citracal Soft Chew] Cholecalciferol (Vitamin D3) 125 mcg PO DAILY 10/25/19 02/13/22 [Vitamin D3] Citalopram Hydrobromide 40 mg PO DAILY 10/25/19 02/13/22 [Citalopram HBr] Cyanocobalamin (Vitamin B-12) 5,000 mcg PO DAILY 10/25/19 02/13/22 [Vitamin B-12] Ibuprofen 400 mg PO DIRECTED PRN 10/25/19 02/13/22 Omeprazole Magnesium [PriLOSEC OTC] 20 mg PO DAILY 10/25/19 02/13/22 Potassium Chloride ER [K-Dur 20] 20 meq PO DAILY 10/25/19 02/13/22 glipiZIDE [Glucotrol] 5 mg PO AC-BRKFST 10/25/19 02/13/22 Ferrous Sulfate [Iron (65 MG 65 mg PO DAILY 07/18/20 02/13/22 Elemental)] Multivitamin [Multivitamins Adult 1 tab PO DAILY 02/13/22 02/13/22 Gummies] Allergies Allergy/AdvReac Type Severity Reaction Status Date / Time latex Allergy Unknown Itching Verified 04/05/22 19:25 Penicillins Allergy Rash/Hives Verified 04/05/22 19:25 codeine AdvReac Nausea & Verified 04/05/22 19:25 Dizziness Review of Systems ROS Statement: Those systems with pertinent positive or pertinent negative responses have been documented in the HPI. ROS Other: All systems not noted in ROS Statement are negative. Past Medical History Past Medical History: COPD, Diabetes Mellitus, GERD/Reflux, Hyperlipidemia, Hypertension, Myocardial Infarction (SD), Osteoarthritis (OA), Sleep Apnea/CPAP/BIPAP, Thyroid Disorder Additional Past Medical History / Comment(s): SD X 2 (2004 & 2008); ANEMIA; USES C-PAP MACHINE; SEASONAL ALLERGIES; HX KIDNEY STONE; HEMORRHOIDS; torn cartilage in left knee with surgery; total right knee replacement; Last Myocardial Infarction Date:: 2008 History of Any Multi-Drug Resistant Organisms: None Reported Past Surgical History: Cholecystectomy, Joint Replacement, Orthopedic Surgery, Tonsillectomy, Tubal Ligation Additional Past Surgical History / Comment(s): PT BORN WITH 6 TOES ON LT FOOT- ONE REMOVED CHILD, LT KNEE SURGERY, RT KNEE replacement, lt knee orthoscopic, COLONOSCOPY 2018, RT total knee arthroplasty; Past Anesthesia/Blood Transfusion Reactions: No Reported Reaction Past Psychological History: Anxiety, Depression Smoking Status: Former smoker Past Alcohol Use History: None Reported Past Drug Use History: None Reported - Past Family History Sister(s) Family Medical History: Cancer Additional Family Medical History / Comment(s): LUNG CANCER; in 2011 Daughter(s) Family Medical History: Cancer Additional Family Medical History / Comment(s): UTERINE CANCER Mother Additional Family Medical History / Comment(s): EMPHYSEMA Father Family Medical History: Cancer, Coronary Artery Disease (CAD), Diabetes Mellitus, Hypertension Additional Family Medical History / Comment(s): CABG, SKIN CANCER; 2019 General Exam Limitations: no limitations General appearance: alert, in no apparent distress Head exam: Present: atraumatic, normocephalic Eye exam: Present: normal appearance, PERRL Pupils: Present: normal accommodation ENT exam: Present: normal exam, normal oropharynx, mucous membranes moist Neck exam: Present: normal inspection, full ROM Respiratory exam: Present: normal lung sounds bilaterally Cardiovascular Exam: Present: regular rate, normal rhythm, normal heart sounds GI/Abdominal exam: Present: soft, normal bowel sounds Extremities exam: Present: normal inspection, full ROM Back exam: Present: normal inspection, full ROM Neurological exam: Present: alert, oriented X3, CN II-XII intact Psychiatric exam: Present: normal affect, normal mood Skin exam: Present: warm, dry Course Vital Signs 04/05/22 19:18 Temperature 98.0 F Pulse Rate 67 Respiratory 18 Rate Blood Pressure 109/59 O2 Sat by Pulse 100 Oximetry Medical Decision Making - Medical Decision Making Was pt. sent in by a medical professional or institution? @ -No Did you speak to anyone other than the patient for history? @ -EMS Did you review nursing and triage notes? @ -Nursing triage notes were obtained and reviewed Were old charts reviewed? @ -No Differential Diagnosis? @ -Acute altered mental status, hyperglycemia, drug overdose EKG interpreted by me (3pts min.)? @ -[none] X-rays interpreted by me (1pt min.)? @ -[none] CT interpreted by me (1pt min.)? @ -[none] U/S interpreted by me (1pt. min.)? @ -[none] What testing was considered but not performed? (CT, X-rays, U/S, labs)? Why? @Chest x-ray was considered however the patient had no acute complaints and only admitted to ingesting a marijuana edible therefore no further testing was needed at this time. What meds were considered but not given? Why? @ -None Did you discuss the management of the patient with other professionals? @ -No Did you reconcile home meds? @ -[none] Was smoking cessation discussed for >3mins.? @ -[none] Was critical care preformed (if so, how long)? @ -[none] Were there social determinants of health that impacted care today? How? (Homelessness, low income, unemployed, alcoholism, drug addiction, transportation, low edu. Level, literacy, decrease access to med. care, fci, rehab)? @ -None Was there de-escalation of care discussed even if they declined? (Discuss DNR or withdrawal of care, Hospice)? @ -No What co-morbidities impacted this encounter? (DM, HTN, Smoking, COPD, CAD, Cancer, CVA, Hep., AIDS, mental health diagnosis, sleep apnea, morbid obesity)? @ -Diabetes Was patient admitted / discharged? @ -The patient was seen and evaluated in the emergency department. Physical exam, the patient was resting in bed without any acute distress. Vital signs admission were stable. The patient did admit to ingesting 5 mg of a marijuana edible gummy and denied of any other acute complaints. The patient denied complain of any lightheadedness or dizziness. The patient was ANO 4. The patient continued to remain stable emergency department for over an hour and the patient's was present on evaluation. On reevaluation, the patient was laughing, interactive and neck up any of any pain. The patient was deemed stable for discharge and told to continue to monitor symptoms and to report back to the emergency department if her symptoms became acutely worse. The patient was agreeable to this as was her and the patient was discharged home in stable condition. Undiagnosed new problem with uncertain prognosis? @ -[none] Drug Therapy requiring intensive monitoring for toxicity (Heparin, Nitro, Insulin, Cardizem)? @ -[none] Were any procedures done? @ -[none] Diagnosis/symptom? @ -Edible marijuana ingestion Acute, or Chronic, or Acute on Chronic? @ -Acute Uncomplicated (without systemic symptoms) or Complicated (systemic symptoms)? @ -Uncomplicated Side effects of treatment? @ -[none] Exacerbation, Progression, or Severe Exacerbation] @ -[no] Poses a threat to life or bodily function? @ -[no] Disposition Clinical Impression: Use of cannabinoid edibles Disposition: HOME SELF-CARE Condition: Stable Instructions (If sedation given, give patient instructions): Cannabis Abuse (ED) Is patient prescribed a controlled substance at d/c from ED?: No Referrals: Lupillo Carvajal MD [Primary Care Provider] - 1-2 days Time of Disposition: 20:20
[2022-04-05 20:58] VITALS: BP 113/56; PULSE 62
== END 2022-04-05 20:58 | disposition home or self-care (01) ==
LOC: EC 19:10
DX: F12.90 Cannabis use, unspecified, uncomplicated (principal); J44.9 Chronic obstructive pulmonary disease, unspecified; E11.9 Type 2 diabetes mellitus without complications; K21.9 Gastro-esophageal reflux disease without esophagitis; E78.5 Hyperlipidemia, unspecified; I10 Essential (primary) hypertension; I25.2 Old myocardial infarction; M19.90 Unspecified osteoarthritis, unspecified site; E07.9 Disorder of thyroid, unspecified; F41.9 Anxiety disorder, unspecified; F32.A Depression, unspecified; Z87.891 Personal history of nicotine dependence; Z91.040 Latex allergy status; Z88.0 Allergy status to penicillin; Z88.5 Allergy status to narcotic agent; Z79.82 Long term (current) use of aspirin; Z79.84 Long term (current) use of oral hypoglycemic drugs; Z79.899 Other long term (current) drug therapy; Z79.890 Hormone replacement therapy
CPT/HCPCS: 99284

== ENCOUNTER → 2023-02-27 | Outpatient (CLI) | payer MEDICARE ==
--- NOTE | 2023-02-27 14:16 | P.PN ---
Subjective Progress Note Date: 02/27/23 Progress Note Date: 02/13/22 Principal diagnosis: fibrocystic breast changes Fibrocystic breast changes Pallavi is a 65-year-old white female seen in consultation for Dr. Desir who underwent a routine bilateral mammogram on 3321. A nodular lesion was noted in the right breast and some heterogeneous calcifications were noted in the left breast for which additional [place]ographs [place]. [place] [address]. In the right breast the lesion appeared to compress out and was not worrisome. Six-month follow-up of the right breast was recommended. In the left breast increasing multiple groups of calcifications were noted and stereotactic core biopsy of 2 sites was recommended. She did not feel any lumps, masses or nodules in either breast. She was not complaining of any nipple discharge or skin changes. She did not complain of any new pain in her breast. She did not complain of any trauma or infection in either breast. She had never had any surgery in her breast. She underwent stereot[place] [id number]. Pathology was benign of both sites. At this time she has no concerns about any lumps masses or nodules in either breast. She had bilateral mammogram performed on 376497 which was benign BIRADS 2. 02-13-22 The patient at this time is not complaining of any lumps masses or nodules of concern in either breast. She had a bilateral mammogram performed on [id number] which was benign BIRADS 2. Nadege five-year model risk is 2.3%, discussed hormone therapy for risk reduction at this time she has declined. 02-27-23 She is due for a bilateral mammogram at this time. She is not complaining of any lumps masses or nodules of concern in either breast. Nicotine: Stopped 11 years ago Caffeine: 6 cans of pop per day Hormones: Negative Chocolate: Negative Family history: sister: lung cancer, smoker father: skin cancer Hormonal History: menarche: 13 , breast fed: no, age at first :18 menopause: 51 BCP: about 3 years hormones: none Surgical history: 1. Total knee replacement on the right, cartilage removed on the left 2. Gallbladder 3. Extra toe removed from the right foot 4. tubaligation 5. stero biopsy two sites in the left breast Medical History: 1. [place] 3 times, last one 10 years ago Social History: smoke: stopped 11 years ago, smoked 2 PPD for 40 years alcohol: none drugs: none - Constitutional Constitutional: Denies chills, Denies fever - EENT Eyes: denies blurred vision, denies pain Ears: bilateral: decreased hearing, deny: tinnitus Ears, nose, mouth and throat: Denies headache, Denies sore throat - Breasts Breasts: bilateral: as per HPI - Cardiovascular Comment: 3 heart attacks Cardiovascular: Reports shortness of breath - Respiratory Comment: former smoker, sleep apnea - Gastrointestinal Gastrointestinal: Denies abdominal pain, Denies diarrhea, Denies nausea, Denies vomiting - Genitourinary (Female) Genitourinary: Reports kidney stones - Menstruation Menstruation: Reports postmenopausal - Musculoskeletal Comment: arthritis - Integumentary Integumentary: Denies pruritus, Denies rash - Neurological Neurological: Denies numbness, Denies weakness - Psychiatric Psychiatric: Denies anxiety, Denies depression - Endocrine Comment: type 2 diabetic, hypothyroid Endocrine: Denies fatigue, Denies weight change - Hematologic/Lymphatic Comment: aspirin - Allergic/Immunologic Allergic/Immunologic: Reports as per HPI, Reports seasonal allergies Objective - Constitutional General appearance: Present: cooperative - EENT Eyes: Present: EOMI ENT: Present: hearing grossly normal - Neck Neck: Present: normal ROM - Respiratory Respiratory: bilateral: CTA - Cardiovascular Heart sounds: normal: S1, S2 - Gastrointestinal General gastrointestinal: Present: soft - Integumentary Integumentary: Present: normal turgor - Musculoskeletal Musculoskeletal: Present: gait normal - Psychiatric Psychiatric: Present: A&O x's 3, appropriate affect, intact judgment & insight - Additional findings Additional findings: Breast Exam: BRA; 42C Section: Bilateral grade 3 ptosis Palpation: Right breast: Multi-positional exam fibrocystic changes no dominant masses or nodules of concern Right axilla: No adenopathy of concern Left breast: Multip-positional exam fibrocystic changes, no dominant masses or nodules of concern Left axilla: No adenopathy of concern Right breast is slightly smaller than left breast Assessment and Plan Assessment: Impression: Fibrocystic breast changes Bilateral mammogram [id number] benign BIRADS 2; due for a mammogram at this time Plan: Bilateral mammogram now Patient to call after bilateral mammogram Patient to follow up sooner any questions or concerns CC: Dr. Desir
[2023-02-27 14:54] VITALS: BP 118/72; PULSE 69; RESP 17; TEMP 98.4
--- NOTE | 2023-03-02 08:54 | MM ---
Reason for Exam: Screening (asymptomatic). Last mammogram was performed 1 year(s) and 1 month(s) ago. Patient History: Menarche at age 11. First Full-Term at age 19. Postmenopausal. Progesterone for 10 years from age 50 until age 60. 07/27/2020, Benign Core Biopsy on the left side. 07/27/2020, Benign Core Biopsy on the left side. Maternal grandmother had breast cancer. Mother had breast cancer, age 88. Risk Values: Nadege 5 year model risk: 4.9%. NCI Lifetime model risk: 15.2%. Prior Study Comparison: 06/20/2020 Bilateral Diagnostic Mammogram, [facility]. 01/28/2021 Bilateral Diagnostic Mammogram, [facility]. 02/06/2022 Bilateral MG 3D screening mammo w/cad, [facility]. Tissue Density: There are scattered fibroglandular densities. Findings: Analyzed By CAD. Left breast biopsy clip. There is no suspicious group of microcalcifications or new suspicious mass. Benign-appearing calcifications bilaterally. Overall Assessment: Benign, BI-RAD 2 Management: Screening Mammogram of both breasts in [address] [facility] will attempt to contact patient to return for supplemental views and ultrasound if indicated. Patient should continue monthly self-breast exams. A clinical breast exam by your physician is recommended on an annual basis. This exam should not preclude additional follow-up of suspicious palpable abnormalities. Note on Nadege scores and lifetime risk: 1. A Nadege score greater than 3% is considered moderate risk. If this is the case, consider specialist referral to assess eligibility for a risk reducing agent. 2. If overall lifetime risk for the development of breast cancer is 20% or higher, the patient may qualify for future screening with alternating mammogram and breast MRI. Electronically signed and approved by: Ari Paul DO
== END ==
LOC: WWCWWP 13:05
PROVIDERS: ATTEND Surgery
DX: Z12.31 Encounter for screening mammogram for malignant neoplasm of breast (principal); N60.12 Diffuse cystic mastopathy of left breast; N60.11 Diffuse cystic mastopathy of right breast; R92.323 Mammographic fibroglandular density, bilateral breasts; R92.1 Mammographic calcification found on diagnostic imaging of breast; Z87.891 Personal history of nicotine dependence; Z96.651 Presence of right artificial knee joint; Z91.040 Latex allergy status; Z88.5 Allergy status to narcotic agent; Z88.0 Allergy status to penicillin
CPT/HCPCS: 77063; 77067

== ENCOUNTER → 2023-06-26 | Day surgery (SDC) | payer MEDICARE ==
[~2023-06-26] MED LIST changes: -LACTATED RINGERS 1,000 ML IV SCH; -LIDOCAINE 1% (10MG/ML) FOR IV START INTRADERMA PRN; +PROPOFOL 10 MG/ML 20 ML VIAL IV ONE
[2023-06-26] MEDS: LACTATED RINGERS 1,000 ML IV SCH (13:58)
[2023-06-26 14:05] LABS: Glucose,Whole Blood 141 mg/dL (70-110)
[2023-06-26 14:20] VITALS: TEMP 98
--- NOTE | 2023-06-26 14:24 | P.PCN ---
Date of Procedure: 06/26/23 Procedure(s) Performed: BRIEF HISTORY: Patient is a 67-year-old pleasant white female scheduled for an elective colonoscopy as a part of screening for colon cancer PROCEDURE PERFORMED: Colonoscopy with snare polypectomy. PREOPERATIVE DIAGNOSIS: Screening for colon cancer. IV sedation per Anesthesia. PROCEDURE: After informed consent was obtained, the patient, was brought into the endoscopy unit. IV sedation was administered by Anesthesia under continuous monitoring. Digital rectal examination was normal. Initially the Olympus CF-160 flexible video colonoscope was then inserted in the rectum, gradually advanced into the cecum without any difficulty. Careful examination was performed as the scope was gradually being withdrawn. Ileocecal valve and the appendiceal orifice were visualized and appeared normal. Prep was excellent. Mucosa of the cecum, had a 6 mm flat polyp that was removed by cold snare polypectomy. Rest of the ascending colon, transverse colon, descending colon, sigmoid colon, and rectum appeared normal. Scattered sigmoid diverticulosis. Retroflexion was performed in the rectum and were seen. grade 2 internal hemorrhoids The patient tolerated the procedure well. IMPRESSION: 6 mm flat cecal polyp status post cold snare polypectomy Scattered sigmoid diverticulosis Grade 2 internal hemorrhoids RECOMMENDATIONS: Findings of this examination were discussed with the patient as well as a family. She was advised to follow with the biopsy results. If the biopsy results adenoma she can have a repeat colonoscopy in 5 years.
[2023-06-26 14:33] LABS: Glucose,Whole Blood 125 mg/dL (70-110)
[2023-06-26 14:55] VITALS: BP 103/59; PULSE 74; RESP 14
== END ==
LOC: ORWHC2ENDO 12:09
PROVIDERS: ATTEND Internal Medicine Gastroenterology
DX: Z12.11 Encounter for screening for malignant neoplasm of colon (principal); D12.0 Benign neoplasm of cecum; K57.30 Diverticulosis of large intestine without perforation or abscess without bleeding; K64.1 Second degree hemorrhoids; K21.9 Gastro-esophageal reflux disease without esophagitis; I25.10 Atherosclerotic heart disease of native coronary artery without angina pectoris; I10 Essential (primary) hypertension; E78.5 Hyperlipidemia, unspecified; J44.9 Chronic obstructive pulmonary disease, unspecified; G47.33 Obstructive sleep apnea (adult) (pediatric); E11.9 Type 2 diabetes mellitus without complications; E07.9 Disorder of thyroid, unspecified; F41.9 Anxiety disorder, unspecified; F32.A Depression, unspecified; M19.90 Unspecified osteoarthritis, unspecified site; Z79.82 Long term (current) use of aspirin; Z79.84 Long term (current) use of oral hypoglycemic drugs; Z79.51 Long term (current) use of inhaled steroids; Z79.890 Hormone replacement therapy; Z88.6 Allergy status to analgesic agent; Z88.0 Allergy status to penicillin; Z91.040 Latex allergy status; Z88.5 Allergy status to narcotic agent; Z79.899 Other long term (current) drug therapy
CPT/HCPCS: 88305; 45385; J2704

== ENCOUNTER → 2023-09-14 | Outpatient (CLI) | payer MEDICARE ==
[2023-09-14 15:42] LABS: INR 1.06 sec (0.93-1.11); Prothrombin Time 11.4 sec (9.9-11.9)
[2023-09-14 15:52] LABS: Blood Urea Nitrogen 15.1 mg/dL (9.0-27.0); Calcium 10.9 mg/dL (8.7-10.3); Carbon Dioxide 23.8 mmol/L (21.6-31.8); Chloride 100 mmol/L (96-109); Glucose 143 mg/dL (70-110); Potassium 4.5 mmol/L (3.5-5.5); Sodium 137 mmol/L (135-145)
[2023-09-14 16:22] LABS: Basophils # (A) 0.04 X 10*3/uL (0.00-0.10); Basophils % (A) 0.5 %; Eosinophils # (A) 0.16 X 10*3/uL (0.04-0.35); HCT 38.8 % (37.2-46.3); HGB 12.3 g/dL (12.0-15.0); Lymphocytes # (A) 1.75 X 10*3/uL (0.90-5.00); MCH 26.4 pg (27.0-32.0); MCHC 31.7 g/dL (32.0-37.0); MCV 83.3 FL (80.0-97.0); Mean Platelet Volume 10.1 FL (9.5-12.2); Monocytes # (A) 0.55 X 10*3/uL (0.20-1.00); Monocytes % (A) 6.9 %; NRBC Per 100 WBC 0 X 10*3/uL (0.00-0.01); Neutrophils % (A) 68.1 %; Platelet Count 216 X 10*3/uL (140-440); RBC 4.66 X 10*6/uL (4.10-5.20); RDW 13.8 % (11.5-14.5); WBC 7.94 X 10*3/uL (4.50-10.00)
== END | disposition home or self-care (01) ==
LOC: LABPAT 10:03
PROVIDERS: ATTEND Orthopaedic Surgery
DX: Z01.812 Encounter for preprocedural laboratory examination (principal); M17.12 Unilateral primary osteoarthritis, left knee; Z22.322 Carrier or suspected carrier of Methicillin resistant Staphylococcus aureus
CPT/HCPCS: 36415; 80048; 85025; 85610; 87070

== ENCOUNTER 2023-10-05 05:37 | Day surgery (SDC) | payer MEDICARE ==
--- NOTE | 2023-10-04 12:09 | HP ---
HISTORY AND PHYSICAL DATE OF SURGERY: 10/05/2023. HISTORY OF PRESENT ILLNESS: Pallavi Broussard is a 68-year-old patient, seen with symptomatic left knee osteoarthritis. We discussed options regarding treatment. She elected to proceed with left total knee arthroplasty. Consent regarding the procedure was obtained. Cardiac clearance was provided by Dr. Yin. PAST MEDICAL HISTORY: Cardiovascular disease, hypertension, hyperlipidemia, npl-[id number]-lwpoavjva diabetes. PAST SURGICAL HISTORY: Knee arthroscopy. MEDICATIONS: Levothyroxine, lisinopril, metformin, metoprolol, simvastatin, omeprazole. ALLERGIES: Codeine. SOCIAL HISTORY: She denies tobacco use. PHYSICAL EVALUATION OF THE LEFT KNEE: Her range of motion is -1/2 to 135 degrees. She has tenderness along the medial joint line. Crepitance, medial patellofemoral compartments with range of motion. Pain with patellofemoral compression. Ligaments are stable. Hip rotation without pain. Distal neurovascular exam is intact. IMAGING STUDIES: Radiographs of the left knee reveal severe osteoarthritic changes. IMPRESSION: 1. Left knee osteoarthritis. 2. Hypertension. 3. Hyperlipidemia. 4. Uzm-zabgzyz-lgumzbtif diabetes. 5. Cardiovascular disease. PLAN: Left total knee arthroplasty. MMODL / IJN: [id number] /
[~2023-10-05 05:37] MED LIST changes: -PROPOFOL 10 MG/ML 20 ML VIAL IV ONE; +TRANEXAMIC 1,000 MG/100ML-NACL 1,000 MG in SALINE 1 100ML.BAG IVPB PRN
[2023-10-05] MEDS ORDERED: LIDOCAINE 1% (10MG/ML) FOR IV START INTRADERMA PRN (05:55)
[2023-10-05] MEDS ORDERED: droPERidol 5 MG/2 ML VIAL IVP PRN (05:55)
[2023-10-05 06:31] LABS: Glucose,Whole Blood 118 mg/dL (70-110)
[2023-10-05] MEDS: LACTATED RINGERS 1,000 ML IV SCH ×2 (06:37→14:16)
[2023-10-05] MEDS: ACETAMINOPHEN TAB 500 MG TAB PO PRN (06:37)
[2023-10-05] MEDS: MELOXICAM 7.5 MG TAB PO PRN (06:38)
[2023-10-05] MEDS: DEXAMETHASONE SOD PHOSPHATE 4 MG/ML 1 ML VIAL IV ONE (06:38)
[2023-10-05] MEDS: ONDANSETRON 4 MG/2 ML VIAL IVP ONE (06:38)
[2023-10-05] MEDS: IV FLUID CONTINUATION 1,000 ML IV ONE (06:44)
[2023-10-05] MEDS: MIDAZOLAM 2 MG/2 ML VIAL IVP ONE (06:55)
[2023-10-05] MEDS ORDERED: TRANEXAMIC 1,000 MG/100ML-NACL PREMIX BAG ONE (07:23)
[2023-10-05] MEDS ORDERED: fentaNYL (PF) 50 MCG/ML 2 ML AMP ONE (07:23)
[2023-10-05] MEDS ORDERED: PROPOFOL 10 MG/ML 20 ML VIAL IV ONE (07:23)
[2023-10-05] MEDS ORDERED: DEXAMETHASONE SOD PHOSPHATE 4 MG/ML 1 ML VIAL ONE (07:23)
[2023-10-05] MEDS ORDERED: MIDAZOLAM 2 MG/2 ML VIAL ONE (07:23)
[2023-10-05] MEDS ORDERED: ROPIVACAINE 5 MG/ML 30 ML VIAL ONE (07:23)
[2023-10-05] MEDS ORDERED: HYDROmorphone 0.5 MG/0.5 ML SYRINGE IVP PRN ×2 (09:15)
[2023-10-05] MEDS ORDERED: ONDANSETRON 4 MG/2 ML VIAL IVP PRN (09:15)
[2023-10-05] MEDS ORDERED: HYDROcodone/APAP 5-325MG 1 EACH TAB PO PRN (09:15)
[2023-10-05] MEDS ORDERED: NALOXONE 0.4 MG/ML 1 ML VIAL IV PRN (09:15)
--- NOTE | 2023-10-05 09:15 | P.OP ---
Date of Procedure: 10/05/23 Preoperative Diagnosis: Left knee osteoarthritis Postoperative Diagnosis: Left knee osteoarthritis Procedure(s) Performed: Left total knee arthroplasty Implants: 1. DePuy attune size 5 left cruciate retaining cemented femur 2. DePuy attune size 5 fixed-bearing cemented tibial baseplate 3. DePuy attune size 5 fixed-bearing cruciate retaining 10 mm polyethylene insert 4. DePuy attune 38 mm all polyethylene cemented patella Anesthesia: regional (Adductor canal catheter, iPAQ block), spinal Surgeon: Kameron Cui Stock Supervisor #1: Garry Valdez Estimated Blood Loss (ml): 40 Pathology: none sent Condition: stable Disposition: PACU Indications for Procedure: 68-year-old patient seen with symptomatic left knee osteoarthritis. After treatment options were discussed, she elected to proceed with total knee arthroplasty. Operative Findings: See description of procedure Description of Procedure: Patient was taken to the operative suite after having an adductor canal catheter placed by the department of anesthesia. Patient underwent a spinal anesthetic by the department of anesthesia. Patient was given preoperative IV intake antibiotics and TXA. A well-padded tourniquet was placed about the left lower extremity. The lower extremity was then prepped and draped in the normal sterile orthopedic fashion. The extremity was elevated, a tourniquet was insufflated to 300. A standard anterior incision was made sharply through skin. Dissection was taken down through the subcutaneous soft tissues down to the extensor mechanism. A medial arthrotomy was performed, patella was everted and knee was flexed. There was advanced osteoarthritis noted. I introduced my distal intramedullary femoral drill. I then introduced the distal femoral cutting jig. Marcelo ALDANA secured the cutting jig with 2 pins. I held retractors in position while Marcelo ALDANA performed the distal femoral resection through the guide area we now removed her distal femoral cutting guide. We now placed our 4-in-1 femoral cutting block and positioned and it was secured with 2 pins by Marcelo ALDANA while I held the block in position. The distal femoral finishing was now completed. A proximal tibial cutting guide was positioned. I held the guide in the appropriate position with both hands well Marcelo ALDANA inserted stabilizing pins into the guide. Proximal tibial cut was made. We now placed a trial femoral component into position, along with an appropriate size tibial tray and insert. We now took the knee through range of motion and had full extension good flexion and good overall soft tissue balance noted. The patella was everted and stabilized with 2 towel clips held by Marcelo ALDANA while I performed a flush with patellar quad tendon utilizing a fresh sawblade. We templated the patella, appropriate drill holes were made. An appropriate trial patella was positioned, knee was taken through full range of motion with the patella tracking very nicely. The trial patella was removed. Drill holes were made through the femoral component. All trial components were removed after marking off the appropriate rotation of the tibia. Retractors were now positioned along the proximal tibia. An appropriate keel punch was made with the appropriate size tibial guide by myself on Marcelo ALDANA assisted by holding retractors. At this point appropriate size implants were chosen and opened. The joint was irrigated copiously with pulse lavage mechanical irrigation. The wound was irrigated with pulse lavage mechanical irrigation. We mixed antibiotic methylmethacrylate. We placed the knee into flexion. We placed multiple retractors assisted by Marcelo ALDANA to expose the proximal tibia. Once the methyl methacrylate was ready, the tibial component was cemented into place removing any excess methylmethacrylate form by both myself and Marcelo ALDANA. The femoral component was cemented into place removing the removing any excess methylmethacrylate performed by both myself and Marcelo ALDANA. We then inserted the appropriate size polyethylene tibial insert. We made sure that it was locked into position. We took the knee into full extension, and then back in a flexion making sure we had removed any excess methylmethacrylate. The patellar component was then cemented down and secured with clamp. Excess methylmethacrylate removed. We kept the knee in full extension, patellar clamp in position until methylmethacrylate had hardened. Once it had hardened the patellar clamp was removed. The knee was taken through full range of motion. The patella tracked nicely. There was good soft tissue balancing. The tourniquet was now released. Additional hemostasis was achieved via electrocautery. A second gram of TXA was given. The wound again was irrigated with pulse lavage mechanical irrigation. The extensor mechanism was repaired with Ethibond suture. We checked the repair with range of motion and it was stable. The subcutaneous soft tissues were repaired with Vicryl in layers. The skin was approximated with pernio/Dermabond. Sterile dressings were applied followed by loose web roll and Sabino bandage. The patient was t ransferred to a bed, and taken to recovery in stable and satisfactory condition. Marcelo ALDANA assisted with this complex procedure.
[2023-10-05] MEDS: ROPIVACAINE 1,100 MG, SODIUM CHLORIDE 0.9% 500 ML 330 ML, EMPTY PAIN BALL 1 EACH MISCELLANE PRN (09:58)
--- NOTE | 2023-10-05 10:39 | XR ---
EXAMINATION TYPE: XR knee limited LT DATE OF EXAM: 10/05/2023 9:52 AM CLINICAL INDICATION:Female, 68 years old with history of Evaluation for Postop abnormality and alignm ent; [facility] COMPARISON: None. TECHNIQUE: XR knee limited LT; examined in Frontal, lateral and oblique projections. FINDINGS: Status post total knee arthroplasty changes with hardware in appropriate alignment and in tact. No evidence of fracture. Subcutaneous lucencies and lucencies within the joint consistent with surgical changes. IMPRESSION: Status post total knee arthroplasty changes with hardware intact and appropriate alignment. No fractu res identified. IMPRESSION: 1. No acute osseous pathology. 2. Mild tricompartmental osteoarthritic changes.
--- NOTE | 2023-10-05 13:23 | P.ANPRN ---
Procedure Note - Anesthesia - Nerve Block Performed Left Adductor Canal Infusion Time Out Performed: Yes Date of Procedure: 10/05/23 Procedure Start Time: 06:54 Procedure Stop Time: 07:09 Location of Patient: PreOp Indication: Acute Post-Operative Pain, Requested by Surgeon Sedation Type: Sedate with meaningful contact maintained Preparation: Sterile Prep Position: Supine Catheter: Indwelling Needle Types: Pajunk Needle Gauge: 21 Ultrasound used to visualize needle placement: Yes Ultrasound used to observe medication spread: Yes Blood Aspirated: No Pain Paresthesia on Injection Noted: No Resistance on Injection: Normal Image Stored and Saved: Yes Events: Uneventful and Well Tolerated (Ropivacaine 0.5% 20 cc plus dexamethasone 4 mg)
--- NOTE | 2023-10-05 13:24 | P.ANPRN ---
Procedure Note - Anesthesia - Nerve Block Performed Left iPack Single Time Out Performed: Yes Date of Procedure: 10/05/23 Procedure Start Time: 07:10 Procedure Stop Time: 07:13 Location of Patient: PreOp Indication: Acute Post-Operative Pain, Requested by Surgeon Sedation Type: Sedate with meaningful contact maintained Preparation: Sterile Prep Position: Supine Needle Types: Pajunk Needle Gauge: 21 Ultrasound used to visualize needle placement: Yes Ultrasound used to observe medication spread: Yes Blood Aspirated: No Pain Paresthesia on Injection Noted: No Resistance on Injection: Normal Image Stored and Saved: Yes Events: Uneventful and Well Tolerated (Ropivacaine 0.5% 25 cc plus dexamethasone 4 mg)
[2023-10-05] MEDS: HYDROmorphone 0.5 MG/0.5 ML SYRINGE IVP PRN (13:46)
[2023-10-05 15:05] LABS: Glucose,Whole Blood 177 mg/dL (70-110)
[2023-10-05] MEDS ORDERED: ALBUTEROL NEBULIZED 2.5 MG/3 ML INHALATION PRN (16:59)
[2023-10-05 17:01] LABS: Glucose,Whole Blood 220 mg/dL (70-110)
[2023-10-05] MEDS ORDERED: DEXTROSE 50% SYRINGE 50 ML IVP PRN ×2 (17:01)
--- NOTE | 2023-10-05 17:08 | P.CONS ---
History of Present Illness - Reason for Consult Consult date: 10/05/23 Medical management Requesting physician: Kameron Cui - Chief Complaint Left knee surgery - History of Present Illness This is a 68-year-old patient, follows with Dr. Raeann Desir. Chronic stable medical condition include CHF, COPD, diabetes GERD hypertension hyperlipidemia prior RI, osteoarthritis after sleep apnea does use a CPAP kidney stones. Denies any stents Patient has undergone left total knee arthroplasty. Postprocedure no chest pain no shortness of breath no nausea vomiting. Some pain is present. Review of systems: GEN.: Tired EYES: None HEENT: None NECK: None RESPIRATORY: None CARDIOVASCULAR: None GASTROINTESTINAL: None GENITOURINARY: None MUSCULOSKELETAL: [Joint pains LYMPHATICS: None HEMATOLOGICAL: None PSYCHIATRY: None NEUROLOGICAL: None Social history: . Smoked started at the age of 15 stopped in 2004. 1 to 2 packs a day. No alcohol. Physical examination: VITAL SIGNS: 98.3, 83, 17, 156 per 88, 98% room air GENERAL: BMI 35.3, reclining bed awake not in distress. EYES: Pupils equal. Conjunctiva claudia l. HEENT: External appearance of nose and ears normal, oral cavity grossly normal. NECK: JVD not raised; masses not palpable. HEART: First and second heart sounds are normal; no edema. LUNGS: Respiratory rate normal; clear to auscultation. ABDOMEN: Soft, nontender, liver spleen not palpable, no masses palpable. PSYCH: Alert and oriented x3; mood and affect claudia l. MUSCULOSKELETAL:No Clubbing/cyanosis;muscles-grossly intact. Dressing of the left knee. Evidence of OA NEUROLOGICAL: Cranial nerves grossly intact; no facial asymmetry, power and sensation grossly intact. LYMPHATICS: No lymph nodes palpable in the axilla and neck INVESTIGATIONS, reviewed in the clinical context: September 13: White count 7.9 hemoglobin 12.3 platelets 216 potassium 4.5 BUN 15.1 creatinine 1.0 Assessment and plan: -Left total knee arthroplasty IV cefazolin for infection prophylaxis. Lovenox for DVT prophylaxis. -COPD and ex-smoker Ventolin as needed -Hyperlipidemia Zetia 10 mg a day -Hypothyroid Synthroid 100 mcg a day -Essential hypertension Lopressor 25 mg twice daily. Prinivil 20 mg twice daily -GERD PPI -Diabetes mellitus type 2 on oral hypoglycemic Resume Glucophage. Hold Glucotrol. Diabetic diet. Follow Accu-Cheks -Chronic congestive heart failure EF not known Lasix. -Obesity BMI 35.3 Weight loss measures Care was discussed with the patient. Questions answered Thank you Dr. Jarquin Past Medical History Past Medical History: Heart Failure, COPD, Diabetes Mellitus, GERD/Reflux, Hyperlipidemia, Hypertension, Myocardial Infarction (RI), Osteoarthritis (OA), Sleep Apnea/CPAP/BIPAP, Thyroid Disorder Additional Past Medical History / Comment(s): RI X 2 (2004 & 2008); ANEMIA; USES C-PAP MACHINE; SEASONAL ALLERGIES; HX KIDNEY STONE; HEMORRHOIDS Last Myocardial Infarction Date:: 2008 History of Any Multi-Drug Resistant Organisms: None Reported Past Surgical History: Cholecystectomy, Heart Catheterization, Joint Rep lacement, Orthopedic Surgery, Tonsillectomy, Tubal Ligation Additional Past Surgical History / Comment(s): PT BORN WITH 6 TOES ON LT FOOT- ONE REMOVED CHILD, LT KNEE SURGERY, RT KNEE replacement, lt knee orthoscopic, COLONOSCOPY 2018, TLK 10/05/23 Past Anesthesia/Blood Transfusion Reactions: No Reported Reaction Past Psychological History: Anxiety, Depression Smoking Status: Former smoker Past Alcohol Use History: None Reported Additional Past Alcohol Use History / Comment(s): STARTED SMOKING AT AGE 15- QUIT IN 2004 SMOKED 1-2 PPD Past Drug Use History: None Reported - Past Family History Sister(s) Family Medical History: Cancer Additional Family Medical History / Comment(s): LUNG CANCER; in 2011 Daughter(s) Family Medical History: Cancer Additional Family Medical History / Comment(s): UTERINE CANCER Mother Additional Family Medical History / Comment(s): EMPHYSEMA Father Family Medical History: Cancer, Coronary Artery Disease (CAD), Diabetes Mellitus, Hypertension Additional Family Medical History / Comment(s): CABG, SKIN CANCER; 2020 Medications and Allergies Home Medications Medication Instructions Recorded Confirmed Type Levothyroxine Sodium [Synthroid] 100 mcg PO DAILY 01/02/15 10/05/23 History Metoprolol Tartrate [Lopressor] 25 mg PO BID 01/02/15 10/05/23 History Simvastatin [Zocor] 40 mg PO HS 01/02/15 10/05/23 History lisinopriL [Prinivil] 20 mg PO BID 01/02/15 10/05/23 History metFORMIN HCL [Glucophage] 1,000 mg PO BID 01/02/15 10/05/23 History Albuterol Inhaler [Ventolin Hfa 1 - 2 puff INHALATION Q6HR PRN 07/27/17 10/05/23 History Inhaler] Aspirin EC [Ecotrin Low Dose] 81 mg PO HS 07/27/17 10/05/23 History Cholecalciferol (Vitamin D3) 125 mcg PO DAILY 10/25/19 10/05/23 History [Vitamin D3] Citalopram Hydrobromide 40 mg PO DAILY 10/25/19 10/05/23 History [Citalopram HBr] Cyanocobalamin (Vitamin B-12) 5,000 mcg PO DAILY 10/25/19 10/05/23 History [Vitamin B-12] Omeprazole Magnesium [PriLOSEC OTC] 40 mg PO DAILY 10/25/19 10/05/23 History Potassium Chloride ER [K-Dur 20] 20 meq PO DAILY 10/25/19 10/05/23 History glipiZIDE [Glucotrol] 10 mg PO AC-BRKFST 10/25/19 10/05/23 History Ferrous Sulfate [Iron (65 MG 65 mg PO DAILY 07/18/20 10/05/23 History Elemental)] Multivitamin [Multivitamins Adult 1 tab PO DAILY 02/13/22 10/05/23 History Gummies] Calcium Carbonate [Calcium] 1,200 mg PO DAILY 09/29/23 10/05/23 History Ezetimibe [Zetia] 10 mg PO DAILY 09/29/23 10/05/23 History Furosemide [Lasix] 20 mg PO Q2D 09/29/23 10/05/23 History Vitamin E (Dl,Tocopheryl Acet) 400 unit PO DAILY 09/29/23 10/05/23 History [Vitamin E (400 Iu = 180 mg)] Acetaminophen [Tylenol Arthritis] 650 mg PO DIRECTED PRN 09/30/23 10/05/23 History Allergies Allergy/AdvReac Type Severity Reaction Status Date / Time latex Allergy Unknown Itching Verified 10/05/23 06:10 Penicillins Allergy Rash/Hives Verified 10/05/23 06:10 codeine AdvReac Nausea & Verified 10/05/23 06:10 Dizziness Physical Exam Vitals: Vital Signs Temp Pulse Resp BP Pulse Ox 10/05/23 15:29 98.3 F 83 17 156/88 98 10/05/23 14:06 76 16 116/53 97 10/05/23 13:45 75 16 117/58 95 10/05/23 13:06 77 16 123/60 98 10/05/23 12:36 76 16 107/58 98 10/05/23 12:06 74 16 118/55 98 10/05/23 11:36 79 16 114/60 98 10/05/23 11:06 75 16 119/55 98 10/05/23 10:36 71 16 109/51 98 10/05/23 10:21 72 16 106/59 98 10/05/23 10:06 69 16 111/57 98 10/05/23 09:51 69 16 122/46 100 10/05/23 09:36 67 16 135/57 100 10/05/23 07:15 55 L 14 108/54 98 10/05/23 06:19 97.0 F L 60 16 118/68 98 Intake and Output 10/05/23 10/05/23 10/05/23 06:59 14:59 22:59 Intake Total 300 750 Output Total 40 550 Balance 300 710 -550 Intake: IV 300 750 Output: Urine 550 Estimated Blood Loss 40 Other: Voiding Method Toilet Weight 107 kg 107 kg Results Labs: Abnormal Lab Results - Last 24 Hours (Table) 10/05/23 10/05/23 10/05/23 Range/Units 06:30 15:01 17:00 POC Glucose (mg/dL) 118 H 177 H 220 H (70-110) mg/dL
[2023-10-05] MEDS: INSULIN ASPART (NovoLOG) 100 UNIT/ML VIAL SQ SCH (18:07)
[2023-10-05] MEDS: HYDROcodone/APAP 7.5-325MG 1 EACH TAB PO PRN (20:14)
[2023-10-05 20:21] LABS: Glucose,Whole Blood 235 mg/dL (70-110)
[2023-10-05] MEDS: ATORVASTATIN 20 MG TAB PO SCH (20:59)
[2023-10-05] MEDS: METOPROLOL TARTRATE 25 MG TAB PO SCH (20:59)
[2023-10-05] MEDS: ENOXAPARIN 30 MG/0.3 ML SYRINGE SQ SCH (21:00)
[2023-10-05] MEDS: metFORMIN 500 MG TAB PO SCH (21:00)
[2023-10-05] MEDS: SENNOSIDES-DOCUSATE SODIUM 1 EACH TAB PO SCH (21:01)
[2023-10-05] MEDS: HYDROmorphone 1 MG/ML 1 ML SYRINGE IVP PRN (22:03)
[2023-10-06] MEDS: LEVOTHYROXINE 100 MCG TAB PO SCH (06:37)
[2023-10-06 06:38] LABS: Glucose,Whole Blood 144 mg/dL (70-110)
--- NOTE | 2023-10-06 07:48 | P.PN ---
Progress Note - Text Progress Note Date: 10/06/23 Anesthesiology Postop day 1 status post total knee arthroplasty with adductor canal catheter. Patient doing well. VAS 4 out of 10. Gross strength intact in lower extremity. Afebrile. Denies alterations in sensorium. Catheter site intact. Heart regular rate Lungs nonlabored Abdomen nondistended Assessment: Postop day 1 status post total knee arthroplasty with adductor canal catheter Plan: 1.All questions answered. Maintain catheter 2 more days with patient removal at home. Instructions to be given at discharge. 2.This note was dictated using iGo software. Please be advised there is a potential for misspellings or errors in licensing services clerk.
[2023-10-06 07:59] VITALS: RESP 16; TEMP 97.2
[2023-10-06] MEDS: FUROSEMIDE 20 MG TAB PO SCH (08:24)
[2023-10-06 08:26] VITALS: BP 110/52; PULSE 53
[2023-10-06 08:27] LABS: Basophils # (A) 0.02 X 10*3/uL (0.00-0.10); Basophils % (A) 0.2 %; Eosinophils # (A) 0.02 X 10*3/uL (0.04-0.35); Eosinophils % (A) 0.2 %; HCT 33.9 % (37.2-46.3); HGB 10.8 g/dL (12.0-15.0); Lymphocytes # (A) 1.64 X 10*3/uL (0.90-5.00); Lymphocytes % (A) 13.6 %; MCH 26.2 pg (27.0-32.0); MCHC 31.9 g/dL (32.0-37.0); MCV 82.1 FL (80.0-97.0); Mean Platelet Volume 10.2 FL (9.5-12.2); Monocytes # (A) 0.99 X 10*3/uL (0.20-1.00); Monocytes % (A) 8.2 %; NRBC Per 100 WBC 0 X 10*3/uL (0.00-0.01); Neutrophils # (A) 9.36 X 10*3/uL (1.80-7.70); Neutrophils % (A) 77.3 %; Platelet Count 202 X 10*3/uL (140-440); RBC 4.13 X 10*6/uL (4.10-5.20); RDW 13.6 % (11.5-14.5); WBC 12.09 X 10*3/uL (4.50-10.00)
[2023-10-06] MEDS: CYANOCOBALAMIN 500 MCG TAB PO SCH (08:34)
[2023-10-06] MEDS: EZETIMIBE 10 MG TAB PO SCH (08:35)
[2023-10-06] MEDS: POTASSIUM CHLORIDE ER 20 MEQ TAB.ER PO SCH (08:36)
[2023-10-06] MEDS: CITALOPRAM HYDROBROMIDE 20 MG TAB PO SCH (08:36)
[2023-10-06] MEDS: CHOLECALCIFEROL 125 MCG (5000 IU) TABLET PO SCH (08:36)
[2023-10-06] MEDS: PANTOPRAZOLE 40 MG TABLET PO SCH (08:36)
[2023-10-06] MEDS: MULTIVITAMINS, THERA 1 EACH TAB PO SCH (08:36)
[2023-10-06] MEDS: VITAMIN E (DL,TOCOPHERYL ACET) 400 UNIT (180 MG) CAP PO SCH (08:37)
[2023-10-06] MEDS: FERROUS SULFATE 325 MG TAB PO SCH (08:37)
--- NOTE | 2023-10-06 10:20 | P.PN ---
Subjective Progress Note Date: 10/06/23 Principal diagnosis: Status post left total knee arthroplasty Patient evaluated at bedside today, she is resting in her hospital chair. She has been up and ambulating with physical therapy, this to include stairs. Her pain is well-controlled currently. She has been urinating with no issues. She denies headaches, lightheadedness, chest pain or shortness of breath Objective - Vital Signs Vital signs: Vital Signs Temp 97.2 F L 10/06/23 07:04 Pulse 53 L 10/06/23 08:25 Resp 16 10/06/23 07:04 BP 110/52 10/06/23 08:25 Pulse Ox 97 10/06/23 07:04 FiO2 Intake & Output 10/05/23 10/06/23 10/06/23 18:59 06:59 18:59 Intake Total 750 240 Output Total 590 Balance 160 240 Weight 107 kg Intake: IV 750 Oral 240 Output: Urine 550 Estimated Blood Loss 40 Other: Voiding Method Toilet # Voids 3 - Exam Left lower extremity: Incision is clean, dry, and intact. The foam dressing is in good condition. There is minimal soft tissue swelling and ecchymosis surrounding the medial and lateral aspects of the incision. Calf is soft, no tenderness with palpation. Plantar flexion, dorsiflexion, EHL, FHL are intact. Sensory exam to light touch throughout the extremity is intact, dorsal pedis pulses 2+. - Labs CBC & Chem 7: 10/06/23 04:45 Labs: Abnormal Lab Results - Last 24 Hours (Table) 10/05/23 10/05/23 10/05/23 Range/Units 15:01 17:00 20:20 WBC (4.50-10.00) X 10*3/uL Hgb (12.0-15.0) g/dL Hct (37.2-46.3) % MCH (27.0-32.0) pg MCHC (32.0-37.0) g/dL Immature Gran # (0.00-0.04) X 10*3/uL Neutrophils # (1.80-7.70) X 10*3/uL Eosinophils # (0.04-0.35) X 10*3/uL POC Glucose (mg/dL) 177 H 220 H 235 H (70-110) mg/dL 10/06/23 10/06/23 Range/Units 04:45 06:36 WBC 12.09 H (4.50-10.00) X 10*3/uL Hgb 10.8 L (12.0-15.0) g/dL Hct 33.9 L (37.2-46.3) % MCH 26.2 L (27.0-32.0) pg MCHC 31.9 L (32.0-37.0) g/dL Immature Gran # 0.06 H (0.00-0.04) X 10*3/uL Neutrophils # 9.36 H (1.80-7.70) X 10*3/uL Eosinophils # 0.02 L (0.04-0.35) X 10*3/uL POC Glucose (mg/dL) 144 H (70-110) mg/dL Assessment and Plan Assessment: Postoperative day #1 status post left total knee arthroplasty Plan: Pain control, plan for discharge home on [place] 7.5 mg / 325 mg DVT prophylaxis, aspirin 81 mg twice a day for 30 days Wound care instructions discussed, this to include showering instructions along with icing and elevating On-Q pain catheter discontinuation was discussed Home therapy/nursing after discharge Medical recommendations appreciated Discharge planning: Patient stable for discharge home today Time with Patient: Less than 30
--- NOTE | 2023-10-06 10:25 | P.DS ---
Providers Date of admission: 10/05/2023 Expected date of discharge: 10/06/23 Attending physician: Kameron Cui Consults: 10/05/23 09:15 Consult Physician Routine Consulting Provider: Eitan Watson Consult Reason/Comments: Medical management Do you want consulting provider notified?: Yes Primary care physician: Raeann Desir MD Hospital Course: Date of admission: 10/05/2023 Date of discharge: 10/06/2023 Admission diagnosis: Status post left total knee arthroplasty Discharge diagnosis: Same Attending physician: Dr. Cui Surgical procedures: Left total knee arthroplasty Brief history: Patient is a 68-year-old female with a history of progressive left knee osteoarthritis. At this point patient has failed conservative treatment measures and has opted to proceed with a elective left total knee arthroplasty. Hospital course: Details of patient's surgery can be found in operative report. Patient tolerated the procedure well and was subsequently transported to orthopedic floor. Patient's orthopeidc and medical care was provided daily. Patient had daily laboratory tests performed for evaluation of overall blood counts. Patient had daily physical therapy to include strengthening range of motion as well as education with walker ambulation. Patient was treated with Lovenox for their postoperative DVT prophylaxis during their inpatient stay. Patient was noted to have a relatively uneventful postoperative course. Patient reported satisfactory pain control with oral pain medications by postoperative day 0. Patient showed satisfactory progress with physical therapy. Patient moved steadily through the program and had no difficulty meeting the goals by postoperative day 1. Given patient's otherwise satisfactory course and having met physical therapy goals, plan is to discharge patient home on postoperative day 1. Discharge condition/disposition: Patient will be discharged home in stable condition. Discharge medications: Instructions are given on resumption of patient's normal daily medications per primary care recommendation, in addition patient will be prescribed [place] 7.5 mg / 325 mg, senna S. Discharge instructions: 1. Wound care and infection precautions, keep incision dry and covered while showering, no lotions, creams, moisturizers. No soaking, tubs, pools, hottubs. Do not scrub over the incision. 2. Weight-bear as tolerated with walker / cane until follow-up. 3. Ice and elevate when necessary. Do not exceed 20 minutes per hour with ice pack. 4. Utilize compression sleeve until seen at first follow up appointment. 5. Visiting nursing care. 6. Home physical therapy including home CPM. 7. Pain meds and anticoagulants per prescription. 8. Pain medication has potential to cause constipation. Increase oral fluid and fiber intake. Contact primary care provider if you have not had a bowel movement within 48 hours after discharge 9. No anti-inflammatory medication until discussed at first post operative visit, this including Motrin, Aleve, Mobic, Diclofenac. 10. Follow up in office at 2 weeks postop with Marcelo Valdez PA-C/Jomar Henderson 11. Follow up with your primary care doctor 7-10 days after discharge. 12. Contact [facility] with any questions, . Procedures: Left total knee arthroplasty Patient Condition at Discharge: Good Plan - Discharge Summary Discharge Rx Participant: No New Discharge Prescriptions: New HYDROcodone/APAP 7.5-325MG [[place] 7.5] 1 each PO Q6HR PRN #28 tab PRN Reason: Pain Aspirin [Adult Low Dose Aspirin EC] 81 mg PO BID #60 tab Sennosides/Docusate Sodium [Senna-S 8.6-50 mg Tablet] 2 each PO DAILY PRN #30 tablet PRN Reason: Constipation No Action lisinopriL [Prinivil] 20 mg PO BID Levothyroxine Sodium [Synthroid] 100 mcg PO DAILY metFORMIN HCL [Glucophage] 1,000 mg PO BID Metoprolol Tartrate [Lopressor] 25 mg PO BID Simvastatin [Zocor] 40 mg PO HS Albuterol Inhaler [Ventolin Hfa Inhaler] 1 - 2 puff INHALATION Q6HR PRN PRN Reason: Shortness Of Breath Aspirin EC [Ecotrin Low Dose] 81 mg PO HS glipiZIDE [Glucotrol] 10 mg PO AC-BRKFST Potassium Chloride ER [K-Dur 20] 20 meq PO DAILY Cyanocobalamin (Vitamin B-12) [Vitamin B-12] 5,000 mcg PO DAILY Citalopram Hydrobromide [Citalopram HBr] 40 mg PO DAILY Cholecalciferol (Vitamin D3) [Vitamin D3] 125 mcg PO DAILY Omeprazole Magnesium [PriLOSEC OTC] 40 mg PO DAILY Ferrous Sulfate [Iron (65 MG Elemental)] 65 mg PO DAILY Ezetimibe [Zetia] 10 mg PO DAILY Acetaminophen [Tylenol Arthritis] 650 mg PO DIRECTED PRN PRN Reason: Pain Multivitamin [Multivitamins Adult Gummies] 1 tab PO DAILY Furosemide [Lasix] 20 mg PO Q2D Vitamin E (Dl,Tocopheryl Acet) [Vitamin E (400 Iu = 180 mg)] 400 unit PO DAILY Calcium Carbonate [Calcium] 1,200 mg PO DAILY Discharge Medication List Levothyroxine Sodium [Synthroid] 100 mcg PO DAILY 01/02/15 [History] Metoprolol Tartrate [Lopressor] 25 mg PO BID 01/02/15 [History] Simvastatin [Zocor] 40 mg PO HS 01/02/15 [History] lisinopriL [Prinivil] 20 mg PO BID 01/02/15 [History] metFORMIN HCL [Glucophage] 1,000 mg PO BID 01/02/15 [History] Albuterol Inhaler [Ventolin Hfa Inhaler] 1 - 2 puff INHALATION Q6HR PRN 07/27/17 [History] Aspirin EC [Ecotrin Low Dose] 81 mg PO HS 07/27/17 [History] Cholecalciferol (Vitamin D3) [Vitamin D3] 125 mcg PO DAILY 10/25/19 [History] Citalopram Hydrobromide [Citalopram HBr] 40 mg PO DAILY 10/25/19 [History] Cyanocobalamin (Vitamin B-12) [Vitamin B-12] 5,000 mcg PO DAILY 10/25/19 [History] Omeprazole Magnesium [PriLOSEC OTC] 40 mg PO DAILY 10/25/19 [History] Potassium Chloride ER [K-Dur 20] 20 meq PO DAILY 10/25/19 [History] glipiZIDE [Glucotrol] 10 mg PO AC-BRKFST 10/25/19 [History] Ferrous Sulfate [Iron (65 MG Elemental)] 65 mg PO DAILY 07/18/20 [History] Multivitamin [Multivitamins Adult Gummies] 1 tab PO DAILY 02/13/22 [History] Calcium Carbonate [Calcium] 1,200 mg PO DAILY 09/29/23 [History] Ezetimibe [Zetia] 10 mg PO DAILY 09/29/23 [History] Furosemide [Lasix] 20 mg PO Q2D 09/29/23 [History] Vitamin E (Dl,Tocopheryl Acet) [Vitamin E (400 Iu = 180 mg)] 400 unit PO DAILY 09/29/23 [History] Acetaminophen [Tylenol Arthritis] 650 mg PO DIRECTED PRN 09/30/23 [History] Aspirin [Adult Low Dose Aspirin EC] 81 mg PO BID #60 tab 10/06/23 [Rx] HYDROcodone/APAP 7.5-325MG [[place] 7.5] 1 each PO Q6HR PRN #28 tab 10/06/23 [Rx] Sennosides/Docusate Sodium [Senna-S 8.6-50 mg Tablet] 2 each PO DAILY PRN #30 tablet 10/06/23 [Rx] Follow up Appointment(s)/Referral(s): [facility], [NON-STAFF] - 1 Week (Agency will call 24-48 hours after discharge to arrange a visit. ) Garry Valdez PAC [PHYSICIAN [employer]] - 10/20/23 9:20 am (With See) Activity/Diet/Wound Care/Special Instructions: Orthopedic Discharge Instructions: 1. Wound care and infection precautions, keep incision dry and covered while showering, no lotions, creams, moisturizers. No soaking, pools, hot tubs. Do not scrub over incision. 2. Weight-bear as tolerated with walker / cane until follow-up. 3. Ice and elevate when necessary. Do not exceed 20 minutes per hour with ice pack. 4. Utilize compression sleeve until seen at first follow up appointment. 5. Pain meds and anticoagulants per prescription. 6. Pain medication has potential to cause constipation. Increase oral fluid and fiber intake. Contact primary care provider if you have not had a bowel movement within 48 hours after discharge. 7. No anti-inflammatory medication until discussed at first post operative visit, this including Motrin, Aleve, Mobic, Diclofenac. 8. Follow up in office at 2 weeks postop with Marcelo Valdez PA-C/Jomar Bo PA-C 9. Follow up with your primary care doctor 7-10 days after discharge. 10. Contact [facility] with any questions, . Wound care instructions: 1. Okay to remove dressing at 10/12/2023 2. Okay to shower directly over the incision after removal of dressing Discharge Disposition: HOME WITH HOME HEALTH SERVICES
[2023-10-06 11:57] LABS: Glucose,Whole Blood 159 mg/dL (70-110)
[2023-10-06] MEDS ORDERED: MULTIVITAMINS, THERA 1 EACH TAB PO SCH (12:00)
--- NOTE | 2023-10-06 18:07 | P.PN ---
Progress Note - Text Progress Note Date: 10/06/23 - Chief Complaint Left knee surgery - History of Present Illness This is a 68-year-old patient, follows with Dr. Raeann Desir. Chronic stable medical condition include CHF, COPD, diabetes GERD hypertension hyperlipidemia prior CO, osteoarthritis after sleep apnea does use a CPAP kidney stones. Denies any stents Patient has undergone left total knee arthroplasty. Postprocedure no chest pain no shortness of breath no nausea vomiting. Some pain is present. October 05: Did ambulate. Doing better. Tolerated diet. Pain controlled. Patient told to resume her lisinopril when her systolic blood pressure goes above 150 with daily blood pressure checks. Discussed with patient . Social history: . Smoked started at the age of 15 stopped in 2004. 1 to 2 packs a day. No alcohol. Physical examination: VITAL SIGNS: 97.2, 53, 16, 110/52, 97% room air GENERAL: Up in bed, comfortable EYES: Pupils equal. Conjunctiva claudia l. HEENT: External appearance of nose and ears normal, oral cavity grossly normal. NECK: JVD not raised; masses not palpable. HEART: First and second heart sounds are normal; no edema. LUNGS: Respiratory rate normal; clear to auscultation. ABDOMEN: Soft, nontender, liver spleen not palpable, no masses palpable. PSYCH: Alert and oriented x3; mood and affect claudia l. MUSCULOSKELETAL:No Clubbing/cyanosis;muscles-grossly intact. Dressing of the left knee. Evidence of OA INVESTIGATIONS, reviewed in the clinical context: October 05: White count 12 hemoglobin 10.8 platelets 202 September 13: White count 7.9 hemoglobin 12.3 platelets 216 potassium 4.5 BUN 15.1 creatinine 1.0 Assessment and plan: -Left total knee arthroplasty IV cefazolin for infection prophylaxis. Lovenox for DVT prophylaxis. -COPD and ex-smoker Ventolin as needed -Acute postprocedure blood loss anemia Continue ferrous sulfate -Hyperlipidemia Zetia 10 mg a day -Hypothyroid Synthroid 100 mcg a day -Essential hypertension Lopressor 25 mg twice daily. Resume prior level when systolic blood pressure above 150. Daily blood pressure checks at home -GERD PPI -Diabetes mellitus type 2 on oral hypoglycemic Resume Glucophage. Glucotrol. Diabetic diet. Follow Accu-Cheks -Chronic congestive heart failure EF not known Lasix. -Obesity BMI 35.3 Weight loss measures Discussed with patient. Thank you Dr. Jarquin Past Medical History Past Medical History: Heart Failure, COPD, Diabetes Mellitus, GERD/Reflux, Hyperlipidemia, Hypertension, Myocardial Infarction (CO), Osteoarthritis (OA), Sleep Apnea/CPAP/BIPAP, Thyroid Disorder Additional Past Medical History / Comment(s): CO X 2 (2004 & 2008); ANEMIA; USES C-PAP MACHINE; SEASONAL ALLERGIES; HX KIDNEY STONE; HEMORRHOIDS Last Myocardial Infarction Date:: 2008 History of Any Multi-Drug Resistant Organisms: None Reported Past Surgical History: Cholecystectomy, Heart Catheterization, Joint Replacement, Orthopedic Surgery, Tonsillectomy, Tubal Ligation Additional Past Surgical History / Comment(s): PT BORN WITH 6 TOES ON LT FOOT- ONE REMOVED CHILD, LT KNEE SURGERY, RT KNEE replacement, lt knee orthoscopic, COLONOSCOPY 2018, TLK 10/05/23 Past Anesthesia/Blood Transfusion Reactions: No Reported Reaction Past Psychological History: Anxiety, Depression Smoking Status: Former smoker Past Alcohol Use History: None Reported Additional Past Alcohol Use History / Comment(s): STARTED SMOKING AT AGE 15- QUIT IN 2004 SMOKED 1-2 PPD Past Drug Use History: None Reported
== END 2023-10-06 13:25 | disposition home health service (06) ==
LOC: OR 05:37 → 4SSUR 09:31 → OR 10-06 13:25
PROVIDERS: ATTEND Orthopaedic Surgery
DX: M17.12 Unilateral primary osteoarthritis, left knee (principal); E03.9 Hypothyroidism, unspecified; E11.9 Type 2 diabetes mellitus without complications; E66.9 Obesity, unspecified; E78.5 Hyperlipidemia, unspecified; G47.30 Sleep apnea, unspecified; D62 Acute posthemorrhagic anemia; G89.18 Other acute postprocedural pain; I11.0 Hypertensive heart disease with heart failure; I50.9 Heart failure, unspecified; I25.2 Old myocardial infarction; I25.10 Atherosclerotic heart disease of native coronary artery without angina pectoris; J44.9 Chronic obstructive pulmonary disease, unspecified; K21.9 Gastro-esophageal reflux disease without esophagitis; Z68.35 Body mass index [BMI] 35.0-35.9, adult; Z79.84 Long term (current) use of oral hypoglycemic drugs; Z79.890 Hormone replacement therapy; Z79.899 Other long term (current) drug therapy; Z87.442 Personal history of urinary calculi; Z87.891 Personal history of nicotine dependence; Z88.0 Allergy status to penicillin; Z88.5 Allergy status to narcotic agent; Z90.49 Acquired absence of other specified parts of digestive tract; Z91.040 Latex allergy status; Z79.82 Long term (current) use of aspirin; Z98.51 Tubal ligation status; Z90.89 Acquired absence of other organs
CPT/HCPCS: 27447; 97161; 64999; 64448; 85025; 73560; C1776; C1713 ×2; C1751; J2250; J1100; J0690 ×2; J2405; J3010; J1650 ×2; J1170 ×3; J2795; J2704

== ENCOUNTER → 2024-03-08 | Outpatient (CLI) | payer MEDICARE ==
--- NOTE | 2024-03-09 16:47 | MM ---
Reason for Exam: Screening (asymptomatic). Last screening mammogram was performed 12 month(s) ago. Patient History: Menarche at age 11. First Full-Term at age 19. Postmenopausal. Progesterone for 10 years from age 50 until age 60. 07/27/2020, Benign Core Biopsy on the left side. 07/27/2020, Benign Core Biopsy on the left side. Maternal grandmother had breast cancer. Mother had breast cancer, age 88. Risk Values: Nadege 5 year model risk: 4.9%. NCI Lifetime model risk: 14.5%. Prior Study Comparison: 01/28/2021 Bilateral Diagnostic Mammogram, [facility]. 02/06/2022 Bilateral MG 3D screening mammo w/cad, [facility]. 02/27/2023 Bilateral MG 3D screening mammo w/cad, [facility]. Tissue Density: The breasts are heterogeneously dense, which may obscure small masses. Findings: Analyzed By CAD. Scattered round and heterogeneous calcifications are unchanged. Microclip lateral left breast from prior biopsy. There is no suspicious group of microcalcifications or new suspicious mass in either breast. Overall Assessment: Benign, BI-RAD 2 Management: Screening Mammogram of both breasts in 1 year. See note below in regards to patient's increased 5 year Nadege score. Patient should continue monthly self-breast exams. A clinical breast exam by your physician is recommended on an annual basis. This exam should not preclude additional follow-up of suspicious palpable abnormalities. Note on Nadege scores and lifetime risk: 1. A Nadege score greater than 3% is considered moderate risk. If this is the case, consider specialist referral to assess eligibility for a risk reducing agent. 2. If overall lifetime risk for the development of breast cancer is 20% or higher, the patient may qualify for future screening with alternating mammogram and breast MRI. [facility], , 03/09/2024 4:44 PM. Electronically signed and approved by: Neeru Sullivan M.D. Radiologist
== END | disposition home or self-care (01) ==
LOC: RADMAMWWP 09:53
PROVIDERS: ATTEND Surgery
DX: Z12.31 Encounter for screening mammogram for malignant neoplasm of breast (principal); Z78.0 Asymptomatic menopausal state; Z80.3 Family history of malignant neoplasm of breast; R92.333 Mammographic heterogeneous density, bilateral breasts
CPT/HCPCS: 77063; 77067

== ENCOUNTER → 2024-03-21 | Outpatient (CLI) | payer MEDICARE ==
[2024-03-21 14:57] LABS: ALT 15 U/L (8-44); AST 19 U/L (13-35); Albumin 4.4 g/dL (3.8-4.9); Albumin/Globulin Ratio 1.91 Ratio (1.60-3.17); Alkaline Phosphatase 90 U/L (41-126); Blood Urea Nitrogen 17.6 mg/dL (9.0-27.0); Calcium 10.7 mg/dL (8.7-10.3); Carbon Dioxide 25.7 mmol/L (21.6-31.8); Chloride 99 mmol/L (96-109); Chol/HDL Ratio 2.29 Ratio; Globulin 2.3 g/dL (1.6-3.3); Glucose 133 mg/dL (70-110); LDL Cholesterol,Calculated 40.2 mg/dL (0.0-131.0); Potassium 4.9 mmol/L (3.5-5.5); Sodium 137 mmol/L (135-145); Total Bilirubin 0.4 mg/dL (0.3-1.2); Total Protein 6.7 g/dL (6.2-8.2)
== END | disposition home or self-care (01) ==
LOC: LABWHC1 10:01
PROVIDERS: ATTEND Internal Medicine Interventional Cardiology
DX: E78.2 Mixed hyperlipidemia (principal)
CPT/HCPCS: 36415; 80053; 80061

== ENCOUNTER → 2024-04-21 | Outpatient (CLI) | payer MEDICARE ==
[2024-04-21 14:24] VITALS: BP 135/84; PULSE 75; RESP 17; TEMP 97.4
--- NOTE | 2024-04-21 14:37 | P.PN ---
Subjective Progress Note Date: 04/21/24 Principal diagnosis: fibrocystic breast changes Progress Note Date: 04-21-24 Principal diagnosis: fibrocystic breast changes Pallavi is a 68-year-old white female seen in consultation for Dr. Desir in 2020 who underwent a routine bilateral mammogram on 332. A nodular lesion was noted in the right breast and some heterogeneous calcifications were noted in the left breast for which additional [place]. [place] [address]. In the right breast the lesion appeared to compress out and was not worrisome. Six-month follow-up of the right breast was recommended. In the left breast increasing multiple groups of calcifications were noted and stereotactic core biopsy of 2 sites was recommended. She did not feel any lumps, masses or nodules in either breast. She was not complaining of any nipple discharge or skin changes. She did not complain of any new pain in her breast. She did not complain of any trauma or infection in either breast. She had never had any surgery in her breast. [place] [address]. Pathology was benign of both sites. At this time she has no concerns about any lumps masses or nodules in either breast. She had bilateral mammogram performed on 03-08-24 which was benign BIRADS 2, this was personally interpreted Fabián Risk: 5 year: 4.9% lifetime risk: 14.5% She has declined chemoprophylaxis Nicotine: Stopped 11 years ago Caffeine: 6 cans of pop per day Hormones: Negative Chocolate: Negative Family history: sister: lung cancer, smoker father: skin cancer Hormonal History: menarche: 13 , breast fed: no, age at first :18 menopause: 51 BCP: about 3 years hormones: none Surgical history: 1. Total knee replacement on the right, cartilage removed on the left 2. Gallbladder 3. Extra toe removed from the right foot 4. tubaligation 5. stero biopsy two sites in the left breast 6. left total knee replaced Medical History: 1. [place] 3 times, last one 10 years ago 2. arthritis Social History: smoke: stopped 12 years ago, smoked 2 PPD for 40 years alcohol: none drugs: none - Constitutional Constitutional: Denies chills, Denies fever - EENT Eyes: denies blurred vision, denies pain Ears: bilateral: decreased hearing, deny: tinnitus Ears, nose, mouth and throat: Denies headache, Denies sore throat - Breasts Breasts: bilateral: as per HPI - Cardiovascular Comment: 3 heart attacks Cardiovascular: Reports shortness of breath - Respiratory Comment: former smoker, sleep apnea - Gastrointestinal Gastrointestinal: Denies abdominal pain, Denies diarrhea, Denies nausea, Denies vomiting - Genitourinary (Female) Genitourinary: Reports kidney stones - Menstruation Menstruation: Reports postmenopausal - Musculoskeletal Comment: arthritis - Integumentary Integumentary: Denies pruritus, Denies rash - Neurological Neurological: Denies numbness, Denies weakness - Psychiatric Psychiatric: Denies anxiety, Denies depression - Endocrine Comment: type 2 diabetic, hypothyroid Endocrine: Denies fatigue, Denies weight change - Hematologic/Lymphatic Comment: aspirin - Allergic/Immunologic Allergic/Immunologic: Reports as per HPI, Reports seasonal allergies Objective - Vital Signs Vital signs: Vital Signs Temp 97.4 F L 04/21/24 14:21 Pulse 75 04/21/24 14:21 Resp 17 04/21/24 14:21 BP 135/84 04/21/24 14:21 Pulse Ox 98 04/21/24 14:21 FiO2 Intake & Output 04/20/24 04/21/24 04/21/24 18:59 06:59 18:59 Weight 99.79 kg - Constitutional General appearance: Present: cooperative - EENT Eyes: Present: EOMI ENT: Present: hearing grossly normal - Neck Neck: Present: normal ROM - Respiratory Respiratory: bilateral: CTA - Cardiovascular Rhythm: regular Heart sounds: normal: S1, S2 - Integumentary Integumentary: Present: normal turgor - Musculoskeletal Musculoskeletal: Present: gait normal - Psychiatric Psychiatric: Present: A&O x's 3, appropriate affect, intact judgment & insight - Additional findings Additional findings: Breast Exam: BRA; 42C Section: Bilateral grade 3 ptosis Palpation: Right breast: Multi-positional exam fibrocystic changes no dominant masses or nodules of concern Right axilla: No adenopathy of concern Left breast: Multip-positional exam fibrocystic changes, no dominant masses or nodules of concern Left axilla: No adenopathy of concern Right breast is slightly smaller than left breast Assessment and Plan Assessment: Impression: Fibrocystic breast changes Bilateral mammogram 03-08-24; BIRAD 2 high fabián risk, declined chemoprophylaxis Plan: Bilateral mammogram February 2025 with appointment Patient to follow up sooner any questions or concerns CC: Nish Corcoran
== END ==
LOC: WWCWWP 14:07
PROVIDERS: ATTEND Surgery
DX: N60.11 Diffuse cystic mastopathy of right breast (principal); N60.12 Diffuse cystic mastopathy of left breast; R92.8 Other abnormal and inconclusive findings on diagnostic imaging of breast; Z88.0 Allergy status to penicillin; Z88.5 Allergy status to narcotic agent; Z91.040 Latex allergy status; Z87.891 Personal history of nicotine dependence